=== PATIENT | female | born 1955 | race Caucasian/White ===

== ENCOUNTER → 2017-06-04 08:40 | Outpatient (CLI) | payer OTHER, SELFPAY ==
[2017-06-04 10:37] LABS: Anion Gap 6 (5-15); BUN 17 mg/dL (7-18); BUN/Creat Ratio 27.7 RATIO (10-20); Calcium,Total 9.1 mg/dL (8.5-10.1); Chloride 104 mmol/L (98-107); Cholesterol 199 mg/dL (200); Creatinine, Serum 0.61 mg/dL (0.55-1.02); EST Glomerular Filtration Rate 106 mL/min (>60); Est Glom Filt Rate - Afr Amer 128 mL/min (>60); Glucose 83 mg/dL (74-106); High Density Lipoprotein 46 mg/dL; Potassium 3.6 mmol/L (3.5-5.1); Sodium Level 141 mmol/L (136-145); Thyroid Stim Hormone (TSH) 0.52 uIU/mL (0.358-3.74); Triglycerides 192 mg/dL; Very Low Density Lipoprotein 38 mg/dL (5-40)
== END ==
PROVIDERS: Family Provider Family Medicine; PCP Family Medicine; Visit Provider Family Medicine
DX: E78.5 Hyperlipidemia, unspecified (principal); E03.9 Hypothyroidism, unspecified
CPT/HCPCS: 36415; 80048; 80061; 84443

== ENCOUNTER → 2017-07-14 14:29 | Outpatient (CLI) | payer OTHER, SELFPAY ==
--- NOTE | 2017-07-14 14:30 | BD_ITS ---
STUDY: DUAL ENERGY X-RAY ABSORPTIOMETRY / DXA REASON FOR EXAM: Female, 62 years old. The patient is postmenopausal. Loss of height. TECHNIQUE: Bone Mineral Density (BMD) measurements of lumbar spine and bilateral hips were obtained. COMPARISON: None. FINDINGS: Lumbar Spine (L1-L4): g/cm2 (1.088) / T-score (-0.8) / Z-score (0.4) Findings are suggestive of normal bone density with a low fracture risk. Left Femur Total: g/cm2 (1.017) / T-score (0.1) / Z-score (1.0) Left Femoral Neck: g/cm2 (1.026) / T-score (-0.1) / Z-score (1.2) Right Femur Total: g/cm2 (1.042) / T-score (0.3) / Z-score (1.2) Right Femoral Neck: g/cm2 (0.985) / T-score (-0.4) / Z-score (0.9) BD/Dexa Bone Density Study IMPRESSION: The patient is considered normal as outlined below according to World Brandan Organization (WHO) criteria with a low fracture risk. Reference Information: The T-score is the number of standard deviations above or below the standard which is normal for young adults at their peak bone mineral density. The World Health Organization (WHO) interprets the T-scores as follows: Above -1 Normal bone density Between -1 and -2.5 Osteopenia Equal to / or below -2.5 Osteoporosis As a practical clinical guideline, osteopenia may be graded as follows: Mild -1 through -1.5 Moderate -1.6 through -2.0 Severe -2.1 through -2.4 The Z-score is the number of standard deviations above or below age-matched controls. A Z-score of less than -1.5 would be considered abnormal. References: 1. NIH Osteoporosis and Related Bone Diseases http://www.osteo.org 2. International Society for Clinical Densitometry http://www.iscd.org 3. National Osteoporosis Foundation http://www.nof.org Electronically Signed: Edward Gonsales MD at 15:45 EDT Tel [phone], Service support ,
--- NOTE | 2017-07-14 14:31 | BI_ITS ---
MAMMOGRAPHY - BILATERAL SCREENING REASON FOR EXAM: Female, 62 years old. Routine annual screening examination. PERTINENT HISTORY: Non-contributory. TECHNIQUE: Digital bilateral breast john (3D mammographic acquisition) in the CC and MLO projections. 2-D mediolateral oblique (MLO) and craniocaudad (CC) views of both breasts were obtained. CAD: Full Field Digital Mammography with Computer Added Detection was performed. COMPARISON: Comparison is made with prior study dated January 22, 2016 and June 21, 2014. FINDINGS: Breast Composition: The breasts are heterogeneously dense, which may obscure small masses. There are no dominant masses or suspicious calcifications. Stable asymmetry of breast tissue were more breast tissue is seen in the upper outer quadrant of the right breast as compared to the left side. No other significant abnormalities are identified. There has been no significant change since the prior study. BI/SCREENING MAMM (CAD), BILAT IMPRESSION: Stable bilateral screening mammogram. Yearly follow-up mammogram recommended. (A) ASSESSMENT CATEGORY: BIRADS Category 2: Benign. A letter regarding these results will be sent to the patient by the facility within 30 days. Approximately 10% of breast cancers are not detected by mammography. A normal mammogram should not delay biopsy of a clinically suspicious abnormality. [id number] Electronically Signed: Edward Gonsales MD at 8:45 EDT Tel [phone], Service support ,
== END ==
PROVIDERS: Family Provider Family Medicine; PCP Family Medicine; Visit Provider Family Medicine
DX: Z12.31 Encounter for screening mammogram for malignant neoplasm of breast (principal); Z13.228 Encounter for screening for other metabolic disorders
CPT/HCPCS: 77063; 77067; 77080

== ENCOUNTER → 2017-08-31 15:54 | Outpatient (CLI) | payer OTHER, SELFPAY | PROVIDERS: Family Provider Family Medicine; PCP Family Medicine; Visit Provider Otolaryngology Otolaryngology/Facial Plastic Surgery | DX: J32.9 Chronic sinusitis, unspecified (principal) | CPT/HCPCS: 87070; 87205 ==

== ENCOUNTER → 2018-06-08 08:54 | Outpatient (CLI) | payer OTHER, SELFPAY ==
[2018-06-08 11:15] LABS: Thyroid Stim Hormone (TSH) 0.61 uIU/mL (0.358-3.74)
== END ==
PROVIDERS: Family Provider Family Medicine; PCP Family Medicine; Referring Provider Family Medicine; Visit Provider Family Medicine
DX: E03.9 Hypothyroidism, unspecified (principal)
CPT/HCPCS: 36415; 84443

== ENCOUNTER → 2019-01-12 | Outpatient (CLI) | payer OTHER, SELFPAY ==
--- NOTE | 2019-01-12 16:16 | BI_ITS ---
MAMMOGRAPHY - BILATERAL SCREENING REASON FOR EXAM: Female, 63 years old. Routine annual screening examination. PERTINENT HISTORY: Non-contributory. TECHNIQUE: Digital bilateral breast phuc (3D mammographic acquisition) in the CC and MLO projections. 2-D mediolateral oblique (MLO) and craniocaudad (CC) views of both breasts were obtained. CAD: Full Field Digital Mammography with Computer Added Detection was performed. COMPARISON: Comparison is made with prior study dated July 14, 2017 and January 22, 2016. FINDINGS: Breast Composition: The breasts are heterogeneously dense, which may obscure small masses. There are no dominant masses or suspicious calcifications. Stable asymmetry of breast tissue or more breast tissue is seen in the upper outer quadrant of the right breast as compared to the left side. Stable appearance of the benign-appearing bilateral axillary lymph nodes. No other significant abnormalities are identified. There has been no significant change since the prior study. BI/SCREEN MAMM (CAD) W/PHUC BILAT IMPRESSION: Stable bilateral screening mammogram. Yearly follow-up mammogram recommended. (A) ASSESSMENT CATEGORY: BIRADS Category 2: Benign. A letter regarding these results will be sent to the patient by the facility within 30 days. Approximately 10% of breast cancers are not detected by mammography. A normal mammogram should not delay biopsy of a clinically suspicious abnormality. [id number] Electronically Signed: Edward Gonsales, at 8:57 EDT , Service support ,
== END | disposition home or self-care (01) ==
LOC: OPBI 16:15
PROVIDERS: Family Provider Family Medicine; PCP Family Medicine; Referring Provider Family Medicine; Visit Provider Family Medicine
DX: Z12.31 Encounter for screening mammogram for malignant neoplasm of breast (principal)
CPT/HCPCS: 77063; 77067

== ENCOUNTER → 2019-04-26 09:37 | Outpatient (CLI) | payer OTHER, SELFPAY ==
[2019-04-26 12:18] LABS: Absolute Lymphocyte Count 1.39 X10^3/uL (0.83-4.51); Basophil# 0.04 X10^3/uL; Eosinophil# 0.12 X10^3/uL; Hematocrit 41.4 % (37-47); Hemoglobin 13.1 g/dL (12.0-15.0); Lymphocyte # 1.39 X10^3/ul (4.0); Lymphocyte % 34.9 % (19-41); Mean Corp Hgb Conc 31.6 g/dL (32-36); Mean Corpuscular Hgb 29.8 pg (27.0-32.0); Mean Corpuscular Volume 94.1 fL (81-99); Mean Platelet Vol. 10.3 fl (6.2-12.0); Monocyte# 0.38 X10^3/uL; Monocyte% 9.5 % (0-10); NRBC Flagged by Analyzer 0 % (0-5); Neutrophil # 2.04 X10^3/uL (2.7-7.7); Neutrophil % 51.3 % (47-70); Platelet Count 267 K/mm3 (150-450); RBC Distribution Width CV 12.7 % (11.6-14.6); RBC Distribution Width SD 44.1 fl (35.1-43.9)
[2019-04-26 13:09] LABS: Anion Gap 5 (5-15); BUN 17 mg/dL (7-18); BUN/Creat Ratio 22.9 RATIO (10-20); Calcium,Total 9.6 mg/dL (8.5-10.1); Chloride 106 mmol/L (98-107); Cholesterol 180 mg/dL (200); Creatinine, Serum 0.74 mg/dL (0.55-1.02); EST Glomerular Filtration Rate 84 mL/min (>60); Est Glom Filt Rate - Afr Amer 102 mL/min (>60); Glucose 89 mg/dL (74-106); High Density Lipoprotein 39 mg/dL; Potassium 3.6 mmol/L (3.5-5.1); Sodium Level 141 mmol/L (136-145); Thyroid Stim Hormone (TSH) 0.45 uIU/mL (0.358-3.74); Triglycerides 243 mg/dL; Very Low Density Lipoprotein 49 mg/dL (5-40)
== END ==
PROVIDERS: Family Provider Family Medicine; PCP Family Medicine; Referring Provider Family Medicine; Visit Provider Family Medicine
DX: I10 Essential (primary) hypertension (principal); E78.5 Hyperlipidemia, unspecified; E03.9 Hypothyroidism, unspecified; Z01.818 Encounter for other preprocedural examination
CPT/HCPCS: 36415; 80048; 80061; 84443; 85025

== ENCOUNTER 2019-07-07 09:00 | Outpatient (RCR) | payer OTHER, SELFPAY ==
--- NOTE | 2019-05-30 10:12 | HP.PTEVAL ---
Patient's Visit Information THOR STRONG is a 64 year old F referred to Physical Therapy by Osbaldo Sands PA-C with a diagnosis of L TKA. Date of Evaluation: 05/27/19 Physical Therapist: Lefty Simpson DPT - Visit Plan Frequency: 2-3x /Week Duration: 4-6 Weeks Plan: Start with ROM of L knee priogressing end ranges as able. Progress active strengthening as tolerated. May use ice for pain control. - Subjective Findings: Pt. is here today for her initial evaluation with diagnosis of L TKA. Pt. had surgery on 05/24/19. Pt. arrives today using FWW. Pt. is having some ryan with her WEN hoes, and thigh soreness, but no calf pain, no dizziness, no difficulty breathing. Pt. still has bandage on and is to take off next week. Pt. reports doing her exercises at home, some difficulty with SLR and knee flexion exercises. Pt. has been icing as instructed. She is taking medication as prescribed. She is eager to get moving and back to work. She works at [employer]. She is hopeful to get back to all recreational and work activities without limitations. Pt. is avid attender of aquatic aerobics and would like to get back to this JAYME. - Pain L knee Pain Intensity (Out of 10): 5 Pain Intensity Range: 3, 7 - Objective POSTURE: Pt. is over wt. Pt. stands with walker, lacks TKE on LLE. Pt. have increased wt. shift to R side. PALPATION: Pt. has no redness, but does have increased heat. pt. has incision which is covered with bandage, to be removed next week. NEURO: normal sensation, normal achilles DTR. ROM: L Knee 0-10-84deg (pain at end ranges.) PT. has tight HS bilaterally., normal hip ROM. MMT: RLE- 5/5 throughout, except hip abd/ext/flexion 4+/5. LLE- ankle 5/5 throughout; knee- 4/5 throughout; hip- flexion 3/5, abd 3/5, ext 3/5. GAIT: Pt. ambulates with FWW, small step length on R side. Pt. lacks TKE during stance phase of gait. I adjusted hieght to better fit patient. STAIRS: 2 HR with step to pattern. - Goals Goal 1:: LTG: Pt. to be I with HEP. Goal Time Frame: 4-6 Weeks Goal 2:: STG: Pt. to have increased L knee ROM to 0-0-120deg without incerase in symptoms. Goal Time Frame: 2-4 Weeks Goal 3:: LTG: Pt. to ambulate without AD without limitations. Goal Time Frame: 4-6 Weeks Goal 4:: LTG: Pt. to negotiate steps with reciprocal patten withotu incerase in symptoms with 1 HR. Goal Time Frame: 4-6 Weeks Goal 5:: LTG: Pt. to have increased LLE strength by 1/2 grade of all effected musculature. Goal Time Frame: 4-6 Weeks Goal 6:: STG: pt. to sleep throughout the night without issues. Goal Time Frame: 2-4 Weeks - Rehabilitation Potential Physical Therapy Diagnosis: Pt. has signs and symptoms consistent with L TKA with subsequent hypombility, increased pain, weakness and difficulty with walking. Pt. would benefit from PT to address above limitations progressing back to all ADLs and work without issues. Rehabilitation Potential: Excellent - Anticipated Interventions Patient/Client Instruction: Educate patient on: Condition, Plan of Care, Risk Factors, Benefits of Fitness Program For the Purpose of:: To foster healthy habits, To improve decision making, To facilitate caregiver knowledge, To improve self management, To prevent re-injury, To improve ability to perform tasks related to life management, To improve tolerance to ADL's Therapeutic Exercise to Include: Strength training, Power training, Body mechanics, Postural training, Flexibilty training, Gait and locomotor training, Passive ROM, Active ROM For the Purpose of:: To decrease pain, To decrease swelling/inflammation, To increase ROM, To improve nutrient delivery to tissue, To increase oxygenation perfusion, To improve muscle performance and motor function, To improve gait and locomotor functions, To improve health of tissue, To decrease soft tissue restriction, To increase flexibility/ROM Cryotherapy (ice pack, ice massage): Yes For the Purpose of:: To decrease pain, To decrease swelling/inflammation, To increase ROM, To improve nutrient delivery to tissue, To increase flexibility/ROM Thank you for the opportunity to evaluate your patient. For Medicare and Medicare HMO plans, please review the plan of care and approve it. It will need to be FAXED BACK to us at [phone] for Medicare purposes. For Medicare only, by signing this I certify the plan of care. Please let me know if there are questions or concerns regarding this plan of care. Physician Signature: Date:
--- NOTE | 2019-06-06 14:54 | HP.PTREVAL_ITS ---
Osbaldo Sands PA-C, It has been my pleasure to treat THOR STRONG over the last 5 visits for L TKA. Please see the progress note below for an update on the physical therapy plan of care! Subjective: Pt. reports having her amna removed earlier this date. Physican was pleased with ROm and progress. Pt. arrives today with use of SPC. No issues. Pt. reports no pain pre treatment. Objective/Function: R KNEE ROM (non operative) 0-0- 133deg NO pain with ROM testing. MMT: 4+/5 throughout knee and hip musculature. Stairs: are painfull with laoding RLE and LLE this date. Pain to pivot in RLE. Pt. has incraesed valgus deformity as well. L KNEE ROM 0-0-105 deg PROM, AROM 0-0-101deg. Pt. is doing better with her L knee, ROM is improving. Pt. has no signs of infection. Plan Plan: Start with ROM of L knee progressing end ranges as able. Progress active strengthening as tolerated. May use ice for pain control. I will also attempt to strength her RLE in hopes to increase stability and reduce stress to R knee. Goals Goal 1:: LTG: Pt. to be I with HEP. Goal Time Frame: 4-6 Weeks Goal 2:: STG: Pt. to have increased L knee ROM to 0-0-120deg without incerase in symptoms. Goal Time Frame: 2-4 Weeks Goal 3:: LTG: Pt. to ambulate without AD without limitations. Goal Time Frame: 4-6 Weeks Goal 4:: LTG: Pt. to negotiate steps with reciprocal patten withotu incerase in symptoms with 1 HR. Goal Time Frame: 4-6 Weeks Goal 5:: LTG: Pt. to have increased LLE strength by 1/2 grade of all effected musculature. Goal Time Frame: 4-6 Weeks Goal 6:: STG: pt. to sleep throughout the night without issues. Goal Time Frame: 2-4 Weeks Anticipated Interventions Patient/Client Instruction: Educate patient on: Condition, Plan of Care, Risk Factors, Benefits of Fitness Program For the Purpose of:: To foster healthy habits, To improve decision making, To facilitate caregiver knowledge, To improve self management, To prevent re- injury, To improve ability to perform tasks related to life management, To improve tolerance to ADL's Therapeutic Exercise to Include: Strength training, Power training, Body mechanics, Postural training, Flexibilty training, Gait and locomotor training, Passive ROM, Active ROM For the Purpose of:: To decrease pain, To decrease swelling/inflammation, To increase ROM, To improve nutrient delivery to tissue, To increase oxygenation perfusion, To improve muscle performance and motor function, To improve gait and locomotor functions, To improve health of tissue, To decrease soft tissue restriction, To increase flexibility/ROM Cryotherapy (ice pack, ice massage): Yes For the Purpose of:: To decrease pain, To decrease swelling/inflammation, To increase ROM, To improve nutrient delivery to tissue, To increase flexibility/ROM Please do not hesitate to contact me at [phone] by phone or if you have questions or concerns regarding this new plan of care! Sincerely, Lefty Simpson DPT
--- NOTE | 2019-06-17 13:56 | HP.PTREVAL_ITS ---
Osbaldo Sands PA-C, It has been my pleasure to treat THOR STRONG over the last 10 visits for L TKA. Please see the progress note below for an update on the physical therapy plan of care! Subjective: Pt reports that she is achy today. Objective/Function: Pt did well with exercises today. Stairs: hard to ascend and descend stairs today with a railing. Gait: walks with decreased heel strike on the L and decreased stance time on the R. Plan Plan: Start with ROM of L knee progressing end ranges as able. Progress active strengthening as tolerated. May use ice for pain control. I will also attempt to strength her RLE in hopes to increase stability and reduce stress to R knee. Goals Goal 1:: LTG: Pt. to be I with HEP. Goal Time Frame: 4-6 Weeks Goal 2:: STG: Pt. to have increased L knee ROM to 0-0-120deg without incerase in symptoms. Goal Time Frame: 2-4 Weeks Goal Progress: Progressing Goal 3:: LTG: Pt. to ambulate without AD without limitations. Goal Time Frame: 4-6 Weeks Goal Progress: Progressing Goal 4:: LTG: Pt. to negotiate steps with reciprocal patten withotu incerase in symptoms with 1 HR. Goal Time Frame: 4-6 Weeks Goal Progress: Progressing Goal 5:: LTG: Pt. to have increased LLE strength by 1/2 grade of all effected musculature. Goal Time Frame: 4-6 Weeks Goal 6:: STG: pt. to sleep throughout the night without issues. Goal Time Frame: 2-4 Weeks Anticipated Interventions Patient/Client Instruction: Educate patient on: Condition, Plan of Care, Risk Factors, Benefits of Fitness Program For the Purpose of:: To foster healthy habits, To improve decision making, To facilitate caregiver knowledge, To improve self management, To prevent re- injury, To improve ability to perform tasks related to life management, To improve tolerance to ADL's Therapeutic Exercise to Include: Strength training, Power training, Body mechanics, Postural training, Flexibilty training, Gait and locomotor training, Passive ROM, Active ROM For the Purpose of:: To decrease pain, To decrease swelling/inflammation, To increase ROM, To improve nutrient delivery to tissue, To increase oxygenation perfusion, To improve muscle performance and motor function, To improve gait and locomotor functions, To improve health of tissue, To decrease soft tissue restriction, To increase flexibility/ROM Cryotherapy (ice pack, ice massage): Yes For the Purpose of:: To decrease pain, To decrease swelling/inflammation, To increase ROM, To improve nutrient delivery to tissue, To increase flexibility/ROM Please do not hesitate to contact me at [phone] by phone or if you have questions or concerns regarding this new plan of care! Sincerely, Dalia Celeste, MPT
--- NOTE | 2019-11-21 16:23 | HP.PTDCSUM ---
It has been my pleasure to treat THOR STRONG referred by Osbaldo Sands PA-C, with the diagnosis of L TKA for a total of 16 visit(s). Discharge Date: 07/07/19 Please see the following information for a summary of their discharge status. Subjective: Pt. reports I am 95% better. Pt. reports no new issues. Pt. is pleased with her progress. HEP compliant. L knee Pain Intensity (Out of 10): 0 % Improvement: 95 Objective/Function: ROM- 0-0-120deg. MMT; 5/5 throughout. Pt. is ambulating without issues without AD. STAIRS: Pt is able to negotiateion without Issues with 1 HR with reciprocal pattern. She is independent with her HEP both on land and water. Pt. is pleased with her ability to get around. She has minimal to no pain. Pt. will be DC to HEP at this point in time. Goal 1:: LTG: Pt. to be I with HEP. Goal Progress: Goal Met Goal 2:: STG: Pt. to have increased L knee ROM to 0-0-120deg without incerase in symptoms. Goal Progress: Goal Met Goal 3:: LTG: Pt. to ambulate without AD without limitations. Goal Progress: Goal Met Goal 4:: LTG: Pt. to negotiate steps with reciprocal patten withotu incerase in symptoms with 1 HR. Goal Progress: Goal Met Goal 5:: LTG: Pt. to have increased LLE strength by 1/2 grade of all effected musculature. Goal Progress: Goal Met Goal 6:: STG: pt. to sleep throughout the night without issues. Plan: DC to HEP. Discharge Comments: Pt. did well with PT with focus on ROM and strengthening. She has minimal pain and is back to most activities wtihout limitaitons. Pt. is I with HEP and will be DC from PT at this point in time. If there are questions or concerns regarding this patient's physical therapy, please feel free to call me at [phone]. Thank you for the referral of this patient. Sincerely, Lefty Simpson DPT
== END 2019-07-07 19:00 | disposition home or self-care (01) ==
LOC: PT 09:00
PROVIDERS: PCP Family Medicine; Referring Provider Physician Assistant Surgical; Visit Provider Physician Assistant Surgical
DX: M17.0 Bilateral primary osteoarthritis of knee (principal); Z96.652 Presence of left artificial knee joint; Z47.1 Aftercare following joint replacement surgery
CPT/HCPCS: 97110; 97161; 97164

== ENCOUNTER → 2019-08-31 13:57 | Outpatient (CLI) | payer OTHER, SELFPAY ==
--- NOTE | 2019-08-31 14:00 | BI_ITS ---
MAMMOGRAPHY - BILATERAL DIAGNOSTIC REASON FOR EXAM: Female, 64 years old. BILAT DX FOR RT LUMPS PERTINENT HISTORY: - RT ASPIRATION IN THE PAST - RT LATERAL AXILLARY LUMP X 4 MONTHS - RT LUMP DEEP MIDSTERNAL REGION X 8WKS - LT MOLE TECHNIQUE: Digital bilateral breast john (3D mammographic acquisition) in the CC and MLO projections. 2-D mediolateral oblique (MLO) and craniocaudad (CC) views of both breasts were obtained. CAD: Full Field Digital Mammography with Computer Added Detection was performed. COMPARISON: None. FINDINGS: Breast Composition: The breasts are heterogeneously dense, which may obscure small masses. There are no dominant masses or suspicious calcifications. There is no mammographic abnormality to correlate with the lumps noted on clinical examination. Ultrasound is performed in the same day. No other significant abnormalities are identified. BI/DIAG MAMM W/CAD, BILAT IMPRESSION: Further ultrasonographic evaluation recommended, as described above. (I) ASSESSMENT CATEGORY: BIRADS Category 0: Incomplete. Need additional imaging evaluation. A letter regarding these results will be sent to the patient by the facility within 30 days. Approximately 10% of breast cancers are not detected by mammography. A normal mammogram should not delay biopsy of a clinically suspicious abnormality. Electronically Signed: Toño Sahu, at 11:25 EDT Tel , Service support ,
--- NOTE | 2019-08-31 14:49 | US_ITS ---
STUDY: ULTRASOUND BREAST - RIGHT REASON FOR EXAM: Female, 64 years old. RT PALPABLE LUMP X 2 TECHNIQUE: Axial and longitudinal images of the RIGHT breast were performed with a high resolution ultrasound transducer. # OF IMAGES: 26 COMPARISON: None. FINDINGS: RIGHT Breast: There is a lesion #1 in the medial aspect of the right breast near the midline consistent with lipoma, measures 1.8 x 2.4 x 0.9 cm in size. Posterior Enhancement: No. Posterior Shadowing: None. Margins: Sharp and smooth. Echogenicity: Hyperechoic. Compression effect on Shape: Shape distortion. There is a lesion # 2 in the axillary tail consistent with lipoma, measures 1.2 x 2.5 x 1 cm in size. Posterior Enhancement: No. Posterior Shadowing: None. Margins: Sharp and smooth. Echogenicity: Hyperechoic. Compression effect on Shape: Shape distortion. There is a lymph node in the right axilla, measures 1.9 x 1.2 x 0.8 cm in size. Posterior Enhancement: No. Posterior Shadowing: None. Margins: Sharp and smooth. Echogenicity: Hypoechoic was hyperechoic center. Compression effect on Shape: No change. US/Breast Limited Unilateral IMPRESSION: Probably benign lipomas at the medial and lateral aspect of the right breast as described above. ASSESSMENT CATEGORY: BIRADS Category 3: Probably Benign - Short-Interval Follow-up Suggested. A letter regarding these results will be sent to the patient by the facility within 30 days. Electronically Signed: Toño Sahu, at 14:55 EDT Tel , Service support ,
== END ==
PROVIDERS: PCP Family Medicine; Visit Provider Family Medicine
DX: N63.0 Unspecified lump in unspecified breast (principal)
CPT/HCPCS: 76642; 77062; 77066; G0279

== ENCOUNTER 2020-01-02 15:30 | Outpatient (RCR) | payer OTHER, SELFPAY ==
--- NOTE | 2019-10-31 11:25 | HP.PTEVAL ---
Patient's Visit Information THOR STRONG is a 64 year old F referred to Physical Therapy by Osbaldo Sands PA-C with a diagnosis of R TKA. Date of Evaluation: 10/28/19 Physical Therapist: Lefty Simpson DPT - Visit Plan Frequency: 2-3x /Week Duration: 4-6 Weeks Plan: Start with ROM, progressing as tolerated. Add in isometric strengthening progrssing to functional strengthening as able. May use ice/vaso for edema control. - Subjective Pt. is here today for her initial evaluation with diagnosis of R TKA. Pt. reports she is doing well. Pt. reports 2/10 pain currently. DOS: 10/26/19. Pt. reports no N/T, no calf pain, no fever chills. 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 Pt. was at work without issues. Pt. arrives today with FWW and has been doing her exercises without issues. Pt. reports being HEP compliant. Pt. is hopeful to get back to her aquatic exercises without limitations. - Pain R knee Pain Intensity (Out of 10): 2 Pain Intensity Range: 1, 6 - Objective POSTURE: Pt. has slight R knee flexion during stance. P. uses FWW to stabilize. Decreased R wt. shifting noted as well. PALPATION: Negative conner's sign. Pt. has tenderness along knee, no sings of infection noted. NEURO: normal sensation, Pt. is able to raise on heels and toes. ROM: R knee 0-3-90deg. Pt. has tenderness at both end ranges of motions, but tolerable. L knee 0-0-123deg. Pt. has tight HS as well. MMT: Pt. has general 3+/5 RLE strength. Pt. is able to complete SLR as well with good quad contraction. GAIT: Pt. ambulates with FWW with sligth R knee flexion, minimal knee flexion during swing phase. STAIRS: DNT this date. - Goals Goal 1:: LTG: Pt. to be I with HEP. Goal Time Frame: 4-6 Weeks Goal 2:: STG: PT. to have 0-0-120deg of R knee ROM. Goal Time Frame: 2-4 Weeks Goal 3:: LTG: Pt. to have increased RLE strength increased by 1/2 grade of all effected musculature. Goal Time Frame: 4-6 Weeks Goal 4:: LTG: Pt. to ambulate unlimited distances with out AD with normal gait pattern. Goal Time Frame: 4-6 Weeks Goal 5:: LTG: Pt. to negotiate 1 flight of steps with 1 HR with recirpocal pattern. Goal Time Frame: 4-6 Weeks - Rehabilitation Potential Physical Therapy Diagnosis: Pt. has signs and symptoms consistent wtih R TKA DOS: 10/26/19. Pt. has subsequent hypombility, weakness, increased pain/edema, decreased functional mobility and decreased ability to negotiate steps. Pt. would benefit from PT to address above limitations progressing back to all recreational activities as previosuly. Rehabilitation Potential: Excellent - Anticipated Interventions Patient/Client Instruction: Educate patient on: Condition, Plan of Care, Risk Factors, Benefits of Fitness Program For the Purpose of:: To facilitate caregiver knowledge, To improve self management, To prevent re-injury, To improve ability to perform tasks related to life management, To improve tolerance to ADL's Therapeutic Exercise to Include: Strength training, Power training, Balance training, Coordination, Postural training, Flexibilty training, Gait and locomotor training, Passive ROM, Active ROM For the Purpose of:: To decrease pain, To decrease swelling/inflammation, To increase ROM, To improve nutrient delivery to tissue, To increase oxygenation perfusion, To improve muscle performance and motor function, To improve ability to perform ADL's, To improve gait and locomotor functions, To improve health of tissue, To decrease soft tissue restriction, To increase flexibility/ROM, To improve endurance, To improve balance, To assume or resume ADL's Cryotherapy (ice pack, ice massage): Yes Vasopneumatic device: Yes For the Purpose of:: To decrease pain, To decrease swelling/inflammation, To increase ROM, To improve nutrient delivery to tissue, To increase oxygenation perfusion, To improve muscle performance and motor function Thank you for the opportunity to evaluate your patient. For Medicare and Medicare HMO plans, please review the plan of care and approve it. It will need to be FAXED BACK to us at [phone] for Medicare purposes. For Medicare only, by signing this I certify the plan of care. Please let me know if there are questions or concerns regarding this plan of care. Physician Signature: Date:
--- NOTE | 2019-11-25 13:37 | HP.PTREVAL ---
Osbaldo Sands PA-C, It has been my pleasure to treat THOR STRONG over the last 13 visits for R TKA. Please see the progress note below for an update on the physical therapy plan of care! Subjective: Pt. reports being 70% better overall. Pt. reports having some tight tightness and soreness at times, but is overall doing well. Pt. arrives without walking device today. Pt. reports having 2/10 pain in her R knee today. HEP compliant. Objective/Function: ROM: 0-0-107deg. MMT: 4+/5 throughout; except hip abd 4/5, adn knee extension 4/5. GAIT: Pt. is able to ambulate without AD. Pt. is ambulating without AD with minimal increase in symptoms. Pt. has good TKE during stance phase, improving knee flexion during swing phase. Pt. does have slight antalgic pattern I am just getting used to it. STAIRS: reciprocal pattern with 2 HR, increased soreness with descending. Plan Plan: Pt. is doing well overall. I extended her POC x2-3 per week for 3 weeks. Goals Goal 1:: LTG: Pt. to be I with HEP. Goal Time Frame: 4-6 Weeks Goal Progress: Progressing Goal 2:: STG: PT. to have 0-0-120deg of R knee ROM. Goal Time Frame: 2-4 Weeks Goal Progress: Progressing Goal 3:: LTG: Pt. to have increased RLE strength increased by 1/2 grade of all effected musculature. Goal Time Frame: 4-6 Weeks Goal Progress: Progressing Goal 4:: LTG: Pt. to ambulate unlimited distances with out AD with normal gait pattern. Goal Time Frame: 4-6 Weeks Goal Progress: Progressing Goal 5:: LTG: Pt. to negotiate 1 flight of steps with 1 HR with recirpocal pattern. Goal Time Frame: 4-6 Weeks Goal Progress: Progressing Anticipated Interventions Patient/Client Instruction: Educate patient on: Condition, Plan of Care, Risk Factors, Benefits of Fitness Program For the Purpose of:: To facilitate caregiver knowledge, To improve self management, To prevent re-injury, To improve ability to perform tasks related to life management, To improve tolerance to ADL's Therapeutic Exercise to Include: Strength training, Power training, Balance training, Coordination, Postural training, Flexibilty training, Gait and locomotor training, Passive ROM, Active ROM For the Purpose of:: To decrease pain, To decrease swelling/inflammation, To increase ROM, To improve nutrient delivery to tissue, To increase oxygenation perfusion, To improve muscle performance and motor function, To improve ability to perform ADL's, To improve gait and locomotor functions, To improve health of tissue, To decrease soft tissue restriction, To increase flexibility/ROM, To improve endurance, To improve balance, To assume or resume ADL's Cryotherapy (ice pack, ice massage): Yes Vasopneumatic device: Yes For the Purpose of:: To decrease pain, To decrease swelling/inflammation, To increase ROM, To improve nutrient delivery to tissue, To increase oxygenation perfusion, To improve muscle performance and motor function Please do not hesitate to contact me at [phone] by phone or if you have questions or concerns regarding this new plan of care! Sincerely, Lefty Simpson DPT
--- NOTE | 2019-12-06 08:56 | HP.PTREVAL ---
Osbaldo Sands PA-C, It has been my pleasure to treat THOR STRONG over the last 17 visits for R TKA. Please see the progress note below for an update on the physical therapy plan of care! Subjective: Pt. reports I just feel tight.' PT. reports being HEP compliant. She was in meetings most of the day yesterday. Objective/Function: ROM: PROM- 0-0-116deg. AROM: 0-0-114deg. Pt. has pain with end range flexion, tight end feel, but no firm end feel. MMT: 4+/5 throughout RLE, no pain with testing. GAIT: Pt. ambulates without AD with good pattern. Slight antalgic pattern during R stance phase initially, but progresses as she walks more. STAIRS: Pt. is ascending steps with reciprocal pattern. Pt. is able to descend with 2 HR wtih reciprocal pattern, but does have increased soreness with RLE loading. Plan Plan: Cont. with POC. Pt. is doing well. She stil has some swelling as she has been back to most daily activities. Pt. will continue with Goals Goal 1:: LTG: Pt. to be I with HEP. Goal Time Frame: 4-6 Weeks Goal Progress: Progressing Goal 2:: STG: PT. to have 0-0-120deg of R knee ROM. Goal Time Frame: 2-4 Weeks Goal Progress: Progressing Goal 3:: LTG: Pt. to have increased RLE strength increased by 1/2 grade of all effected musculature. Goal Time Frame: 4-6 Weeks Goal Progress: Goal Met Goal 4:: LTG: Pt. to ambulate unlimited distances with out AD with normal gait pattern. Goal Time Frame: 4-6 Weeks Goal Progress: Goal Met Goal 5:: LTG: Pt. to negotiate 1 flight of steps with 1 HR with recirpocal pattern. Goal Time Frame: 4-6 Weeks Goal Progress: Progressing Anticipated Interventions Patient/Client Instruction: Educate patient on: Condition, Plan of Care, Risk Factors, Benefits of Fitness Program For the Purpose of:: To facilitate caregiver knowledge, To improve self management, To prevent re-injury, To improve ability to perform tasks related to life management, To improve tolerance to ADL's Therapeutic Exercise to Include: Strength training, Power training, Balance training, Coordination, Postural training, Flexibilty training, Gait and locomotor training, Passive ROM, Active ROM For the Purpose of:: To decrease pain, To decrease swelling/inflammation, To increase ROM, To improve nutrient delivery to tissue, To increase oxygenation perfusion, To improve muscle performance and motor function, To improve ability to perform ADL's, To improve gait and locomotor functions, To improve health of tissue, To decrease soft tissue restriction, To increase flexibility/ROM, To improve endurance, To improve balance, To assume or resume ADL's Cryotherapy (ice pack, ice massage): Yes Vasopneumatic device: Yes For the Purpose of:: To decrease pain, To decrease swelling/inflammation, To increase ROM, To improve nutrient delivery to tissue, To increase oxygenation perfusion, To improve muscle performance and motor function Please do not hesitate to contact me at [phone] by phone or if you have questions or concerns regarding this new plan of care! Sincerely, FLO BartlettT
--- NOTE | 2020-01-12 07:24 | HP.PTDCNRP_ITS ---
THOR STRONG was seen in my office for initial evaluation on 10/28/19. The following Plan of Care was established for this patient: Initial Frequency: 2-3x /Week Initial Duration: 4-6 Weeks Patient/Client Instruction: Educate patient on: Condition, Plan of Care, Risk Factors, Benefits of Fitness Program For the Purpose of:: To facilitate caregiver knowledge, To improve self management, To prevent re-injury, To improve ability to perform tasks related to life management, To improve tolerance to ADL's Therapeutic Exercise to Include: Strength training, Power training, Balance training, Coordination, Postural training, Flexibilty training, Gait and lo comotor training, Passive ROM, Active ROM For the Purpose of:: To decrease pain, To decrease swelling/inflammation, To increase ROM, To improve nutrient delivery to tissue, To increase oxygenation perfusion, To improve muscle performance and motor function, To improve ability to perform ADL's, To improve gait and locomotor functions, To improve health of tissue, To decrease soft tissue restriction, To increase flexibility/ROM, To improve endurance, To improve balance, To assume or resume ADL's Cryotherapy (ice pack, ice massage): Yes Vasopneumatic device: Yes For the Purpose of:: To decrease pain, To decrease swelling/inflammation, To increase ROM, To improve nutrient delivery to tissue, To increase oxygenation perfusion, To improve muscle performance and motor function This patient was last seen in our office 01/02/20. Pertinent comments regarding their Physical therapy will appear below: Pt. was treated for her TKA. Pt. is doing well. She is still having some mild swelling, but I talked with her about how this can last upto 6 months at times. Pt. is walking well, some mild soreness with descending steps. Pt. will be DC from Pt at this point in time. At this point I will be discontinuing this patient from physical therapy. I would be happy to see this patient again in the future if found appropriate by the physician. Thank you! FLO BartlettT
== END 2020-01-02 19:00 | disposition home or self-care (01) ==
LOC: PT 15:30
PROVIDERS: PCP Family Medicine; Referring Provider Physician Assistant Surgical; Visit Provider Physician Assistant Surgical
DX: M17.11 Unilateral primary osteoarthritis, right knee (principal)
CPT/HCPCS: 97110; 97113; 97140; 97161; 97164

== ENCOUNTER → 2020-01-25 08:42 | Outpatient (CLI) | payer OTHER, SELFPAY ==
[2020-01-25 10:46] LABS: Anion Gap 5 (5-15); BUN 18 mg/dL (7-18); BUN/Creat Ratio 23.2 RATIO (10-20); Calcium,Total 9.4 mg/dL (8.5-10.1); Chloride 103 mmol/L (98-107); Cholesterol 192 mg/dL (200); Creatinine, Serum 0.78 mg/dL (0.55-1.02); EST Glomerular Filtration Rate 80 mL/min (>60); Est Glom Filt Rate - Afr Amer 97 mL/min (>60); Glucose 96 mg/dL (74-106); High Density Lipoprotein 51 mg/dL; Potassium 3.3 mmol/L (3.5-5.1); Sodium Level 140 mmol/L (136-145); Thyroid Stim Hormone (TSH) 2.69 uIU/mL (0.358-3.74); Triglycerides 234 mg/dL; Very Low Density Lipoprotein 47 mg/dL (5-40)
== END ==
PROVIDERS: PCP Family Medicine; Referring Provider Family Medicine; Visit Provider Family Medicine
DX: I10 Essential (primary) hypertension (principal); E03.9 Hypothyroidism, unspecified
CPT/HCPCS: 36415; 80048; 80061; 84443

== ENCOUNTER → 2020-02-07 11:01 | Outpatient (CLI) | payer OTHER, SELFPAY ==
--- NOTE | 2020-02-07 11:02 | US_ITS ---
STUDY: ULTRASOUND BREAST - RIGHT REASON FOR EXAM: Female, 64 years old. Palpable lump in the right breast. TECHNIQUE: Axial and longitudinal images of the RIGHT breast were performed with a high resolution ultrasound transducer. # OF IMAGES: 34 COMPARISON: Comparison is made with prior ultrasound dated 08/31/2019 and prior mammogram dated 08/31/2019. FINDINGS: RIGHT Breast: There is a 2 cm x 2.4 cm x 2 cm hyperechoic nodule at the medial aspect of the right breast. A similar appearing nodule is seen in the axillary region measuring 1.5 cm x 3.1 cm x 1.2 cm. This most likely presents a lipoma. It is also evidence of a 2 cm x 1.2 cm x 0.8 cm benign-appearing axillary lymph nodes. US/Breast Limited Unilateral IMPRESSION: Stable examination. ASSESSMENT CATEGORY: BIRADS Category 2: Benign. A letter regarding these results will be sent to the patient by the facility within 30 days. Electronically Signed: Edward Gonsales, at 14:33 EDT , Service support ,
== END ==
PROVIDERS: PCP Family Medicine; Referring Provider Family Medicine; Visit Provider Family Medicine
DX: N63.10 Unspecified lump in the right breast, unspecified quadrant (principal)
CPT/HCPCS: 76642

== ENCOUNTER → 2020-08-02 09:51 | Outpatient (CLI) | payer OTHER, SELFPAY ==
--- NOTE | 2020-08-02 10:30 | VDLE_ITS ---
Reason For Study: pain RIGHT GSV is normal. CFV is compressible, spontaneous, phasic, competent and demonstrates normal augmentation. FV is compressible, spontaneous, phasic, competent and demonstrates normal augmentation. POP V is compressible, spontaneous, phasic, competent and demonstrates normal augmentation. T/P Trunk is compressible. PTV is compressible. RT PerV is compressible. Soleus V is dilated and noncompressible. Procedure This is a venous duplex using B-mode, color flow and spectral Doppler. Exam performed in department. The exam was abbreviated due to the COVID 19 protocol. The exam was diagnostic. A preliminary report was called and/or faxed to [facility] phone nurse. VL/Venous Duplex US, Unilateral Interpretation Summary Acute deep vein thrombosis is noted in the right soleus vein. The remainder of the right lower extremity deep venous system is patent and compressible. Valvular competence ap pears intact within the proximal deep venous system on the right . The right great saphenous vein a ppears patent and compressible segmentally. Ordering Physician: Moreno Patino Performed By: Bryan Arango RVT
[2020-08-02 13:32] LABS: Anion Gap 2 (5-15); BUN 18 mg/dL (7-18); BUN/Creat Ratio 21.6 RATIO (10-20); Calcium,Total 9.8 mg/dL (8.5-10.1); Chloride 103 mmol/L (98-107); Creatinine, Serum 0.83 mg/dL (0.55-1.02); EST Glomerular Filtration Rate 74 mL/min (>60); Est Glom Filt Rate - Afr Amer 89 mL/min (>60); Glucose 69 mg/dL (74-106); Magnesium 2.5 mg/dL (1.6-2.6); Potassium 3.7 mmol/L (3.5-5.1); Sodium Level 140 mmol/L (136-145); Thyroid Stim Hormone (TSH) 3.49 uIU/mL (0.358-3.74)
== END ==
LOC: MFPLAB 10:17 → CVS 10:30
PROVIDERS: PCP Family Medicine; Referring Provider Family Medicine; Visit Provider Family Medicine
DX: R25.2 Cramp and spasm (principal); M79.604 Pain in right leg
CPT/HCPCS: 36415; 80048; 83735; 84443; 93971

== ENCOUNTER → 2020-11-26 12:34 | Outpatient (CLI) | payer OTHER, SELFPAY ==
--- NOTE | 2020-11-26 12:35 | BI_ITS ---
MAMMOGRAPHY - BILATERAL SCREENING REASON FOR EXAM: Female, 65 years old. Routine annual screening examination. PERTINENT HISTORY: Non-contributory. TECHNIQUE: Digital bilateral breast phuc (3D mammographic acquisition) in the CC and MLO projections. 2-D mediolateral oblique (MLO) and craniocaudad (CC) views of both breasts were obtained. CAD: Full Field Digital Mammography with Computer Added Detection was performed. COMPARISON: Comparison is made with prior studies of 08/31/2019. FINDINGS: Breast Composition: There are scattered areas of fibroglandular density. There is a 1.8 cm x 1.6 cm well-defined nodule in the central lateral aspect of the left breast. Correlation with ultrasound is recommended. No other significant abnormalities are identified. BI/SCRN MAMM (CAD)W/PHUC BILAT IMPRESSION: 1.8 cm x 1.6 cm well-defined nodule in the central lateral aspect of the left breast. Correlation with ultrasound is recommended. ASSESSMENT CATEGORY: BIRADS Category 0: Incomplete. Need additional imaging evaluation. A letter regarding these results will be sent to the patient by the facility within 30 days. Approximately 10% of breast cancers are not detected by mammography. A normal mammogram should not delay biopsy of a clinically suspicious abnormality. [id number] Electronically Signed: Edward Gonsales MD at 13:32 EDT , Service support ,
== END ==
PROVIDERS: PCP Family Medicine; Referring Provider Family Medicine; Visit Provider Family Medicine
DX: Z12.31 Encounter for screening mammogram for malignant neoplasm of breast (principal)
CPT/HCPCS: 77063; 77067

== ENCOUNTER → 2020-11-27 09:34 | Outpatient (CLI) | payer OTHER, SELFPAY ==
--- NOTE | 2020-11-27 09:36 | US_ITS ---
STUDY: ULTRASOUND BREAST - LEFT REASON FOR EXAM: Female, 65 years old. Abnormal screening mammogram. TECHNIQUE: Axial and longitudinal images of the LEFT breast were performed with a high resolution ultrasound transducer. # OF IMAGES: 38 COMPARISON: Comparison is made with prior mammogram dated 11/26/2020. FINDINGS: LEFT Breast: The mammographic abnormality corresponds to a 2 cm x 1.5 cm x 0.8 cm cyst at the 3 o''clock position of the breast at 8 cm from nipple. There is also evidence of 2 subcentimeter cysts at the 2 o''clock position of the breast at 6 cm from nipple. US/Breast Limited Unilateral IMPRESSION: Dominant cyst measuring 2 cm x 1.5 cm x 0.8 cm at the 3 o''clock position of the breast at 8 cm from the nipple. ASSESSMENT CATEGORY: BIRADS Category 2: Benign. A letter regarding these results will be sent to the patient by the facility within 30 days. Electronically Signed: Edward Gonsales MD at 10:41 EDT , Service support ,
== END ==
LOC: OPUS 09:35
PROVIDERS: PCP Family Medicine; Referring Provider Family Medicine; Visit Provider Family Medicine
DX: R92.8 Other abnormal and inconclusive findings on diagnostic imaging of breast (principal); N63.0 Unspecified lump in unspecified breast
CPT/HCPCS: 76642

== ENCOUNTER → 2020-12-18 14:33 | Outpatient (CLI) | payer OTHER, SELFPAY | PROVIDERS: PCP Family Medicine; Visit Provider Family Medicine | DX: B34.9 Viral infection, unspecified (principal) | CPT/HCPCS: 87635; U0005; U0003 ==

== ENCOUNTER → 2021-01-29 08:43 | Outpatient (CLI) | payer OTHER, SELFPAY ==
[2021-01-29 10:19] LABS: ALB/GLOB Ratio 0.8 RATIO (0.9-2.4); AST(SGOT) 18 U/L (15-37); Alanine Aminotransfer ALT/SGPT 28 U/L (13-56); Albumin, Serum 3.3 g/dL (3.2-5.0); Alkaline Phosphatase 86 U/L (45-117); Anion Gap 6 (5-15); BUN 12 mg/dL (7-18); BUN/Creat Ratio 16.5 RATIO (10-20); Calcium,Total 9.5 mg/dL (8.5-10.1); Chloride 101 mmol/L (98-107); Cholesterol 180 mg/dL (200); Creatinine, Serum 0.73 mg/dL (0.55-1.02); EST Glomerular Filtration Rate 86 mL/min (>60); Est Glom Filt Rate - Afr Amer 104 mL/min (>60); Globulin 4.4 g/dL (2.2-4.2); Glucose 92 mg/dL (74-106); High Density Lipoprotein 42 mg/dL; Potassium 3.2 mmol/L (3.5-5.1); Protein, Total 7.7 g/dL (6.4-8.2); Sodium Level 141 mmol/L (136-145); Thyroid Stim Hormone (TSH) 0.38 uIU/mL (0.358-3.74); Triglycerides 206 mg/dL; Very Low Density Lipoprotein 41 mg/dL (5-40)
== END ==
PROVIDERS: PCP Family Medicine; Referring Provider Family Medicine; Visit Provider Family Medicine
DX: E78.5 Hyperlipidemia, unspecified (principal); E03.9 Hypothyroidism, unspecified
CPT/HCPCS: 36415; 80053; 80061; 84443

== ENCOUNTER 2021-03-12 08:00 | Outpatient (RCR) | payer OTHER, SELFPAY ==
--- NOTE | 2020-11-01 10:19 | HP.PTEVAL_ITS ---
Patient's Visit Information THOR STRONG is a 65 year old F referred to Physical Therapy by Dr. Edouard Vazquez MD with a diagnosis of R knee weakness, history of R TKA. Date of Evaluation: 10/29/20 Physical Therapist: Lefty Simpson DPT - Visit Plan Frequency: 2x /Week Duration: 4 Weeks Plan: Start with quad stretching, quad strengthening (focus on eccentric if possible). Add in glute med/max strenghtening as well. - Subjective Pt. is here today for her initial evaluation with diagnosis of R knee after history of R TKA (October 2019). Pt. reports overall doing well, but is having some trouble with descending steps, walking and feels that it is weak. No N/T. Pt. reports mild issues with sleeping, most due to hip pain. Pt. is back to work, and is doing well, minus stair negotiation. Increased pain: prolonged walking, descending steps. Decreased pain: rest, ice. Pt. is overall feeling well, but would like to feel better with stair negotiation. Pt. was previously working out in the pool, but had to stop as she is taking an only class and is very busy between work and school. Pt. reports pain gets as bad as 8/10 with descending the steps, but minimal pain with walking. She reports pain is located at superior aspect of R patella near quad insertion. Pt. is hopeful to get back to all recreational activities without limitations. - Pain R knee Pain Intensity (Out of 10): 0 Pain Intensity Range: 0, 8 Comment: superior to patella, worst with stairs - Objective POSTURE: Pt. has descent posture in stance. Pt. is able to get full TKE in B knees. No lateral wt. shifting noted. PALPATION: pt. has tenderness at distal squat tendon at superior aspect of R patella. She does reports mild medial joint line pain, but the majority of her pain is at superior aspect of patella. NEURO: Pt. has normal sensation and DTR of bilateral LEs. Pt. is able to rise on heels and toes without issues. ROM: L knee: 0-0-110deg, R knee 0-0-125deg. Pt. reports increased tightness at superior aspect of R patella with increased knee flexion. Pt. felt similar with violeta quad stretch proper to end range of her knee ROM, suggesting tight quads. MMT: RLE- ankle 5/5 throughout; knee: ext 4+/5, flexion 4+/5; hip- flexion 4/5, abd 4/5, ext 4/5. LLE: 5-/5 throughout. GAIT: Pt. ambulates without AD, with good knee mechanics. She does have slight B knee valgus positioning during stance phase. STAIRS: Pt. has marked functional weakness of her quad and glutes with ascending, but worse with descending stairs. - Goals Goal 1:: LTG: Pt. to be I with HEP. Goal Time Frame: 2-4 Weeks Goal 2:: STG: Pt. to have increased quad length indicated by increased ROM with violeta stretching. Goal Time Frame: 2-4 Weeks Goal 3:: LTG: Pt. to have increased RLE strength to at least 5-/5 throughout. Goal Time Frame: 4-6 Weeks Goal 4:: LTG: Pt. to negotiate steps with reciprocal pattern with good eccentric control of RLE. Goal Time Frame: 4-6 Weeks Goal 5:: STG: Pt. to walk unlimited distances without increase in symptoms. Goal Time Frame: 2-4 Weeks - Rehabilitation Potential Physical Therapy Diagnosis: Pt. has signs and symptoms consistent with pain at superior aspect of patella near quad tendon insertion. Pt. has some marked quad/glute weakness and tightness in her quad muscle. Pt would benefit from PT to work on RLE strengthening, and quad stretching. Rehabilitation Potential: Excellent - Anticipated Interventions Patient/Client Instruction: Educate patient on: Condition, Plan of Care, Risk Factors, Benefits of Fitness Program For the Purpose of:: To foster healthy habits, To improve decision making, To facilitate caregiver knowledge, To improve self management, To prevent re- injury, To improve ability to perform tasks related to life management Therapeutic Exercise to Include: Strength training, Power training, Body mechanics, Flexibilty training For the Purpose of:: To decrease pain, To decrease swelling/inflammation, To increase ROM, To improve nutrient delivery to tissue, To increase oxygenation perfusion, To improve muscle performance and motor function Manual Therapy Techniques to Include: Mobilization, Soft tissue mobilization For the Purpose of:: To decrease pain, To decrease swelling/inflammation, To increase ROM Thank you for the opportunity to evaluate your patient. For Medicare and Medicare HMO plans, please review the plan of care and approve it. It will need to be FAXED BACK to us at [phone] for Medicare purposes. For Medicare only, by signing this I certify the plan of care. Please let me know if there are questions or concerns regarding this plan of care. Physician Signature: Date:
--- NOTE | 2020-11-29 11:03 | HP.PTREVAL_ITS ---
Dr. Edouard Vazquez MD, It has been my pleasure to treat THOR STRONG over the last 5 visits for R knee weakness, history of R TKA. Please see the progress note below for an update on the physical therapy plan of care! Subjective: Pt. reports no pain currently. Pt. reports working out hard in the pool on Thursday and was sore the next. Better today. pt. reports being 50% better overall. Objective/Function: Pt. tolerated all PT well without issues. Pt. did well with graston then strengthening exercises. pt. pleased. STAIRS: Pt. is able to negotiate stairs with reciprocal pattern without mild symptoms with descending, no pain with ascending. Use of BHR. ROM: Pt. is able to achieve TKE with over pressure, pt. able to achieve 117deg of knee flexion actively. MMT: Pt. has 4+/5 throughout RLE, except 5-/5 with HS and hip flexion today. GAIT: Pt. is walking better with good mechanics. Pt. reports no issues with gait. Over she is progressing well. At this point in time I would like her to start to progress to independence with her HEP. I will see her every 2 weeks to progress HEP to independent program. Plan Plan: POC extended x1 per every other week. Focus on progressing HEP to independent program. Balance/Gait/Functional tests - Balance/Special Test Scores Lower Extremity Functional Score: 43 Goals Goal 1:: LTG: Pt. to be I with HEP. Goal Time Frame: 2-4 Weeks Goal Progress: Progressing Goal 2:: STG: Pt. to have increased quad length indicated by increased ROM with violeta stretching. Goal Time Frame: 2-4 Weeks Goal Progress: Progressing Goal 3:: LTG: Pt. to have increased RLE strength to at least 5-/5 throughout. Goal Time Frame: 4-6 Weeks Goal Progress: Progressing Goal 4:: LTG: Pt. to negotiate steps with reciprocal pattern with good eccentric control of RLE. Goal Time Frame: 4-6 Weeks Goal Progress: Progressing Goal 5:: STG: Pt. to walk unlimited distances without increase in symptoms. Goal Time Frame: 2-4 Weeks Goal Progress: Progressing Anticipated Interventions Patient/Client Instruction: Educate patient on: Condition, Plan of Care, Risk Factors, Benefits of Fitness Program For the Purpose of:: To foster healthy habits, To improve decision making, To facilitate caregiver knowledge, To improve self management, To prevent re- injury, To improve ability to perform tasks related to life management Therapeutic Exercise to Include: Strength training, Power training, Body mechanics, Flexibilty training For the Purpose of:: To decrease pain, To decrease swelling/inflammation, To inc rease ROM, To improve nutrient delivery to tissue, To increase oxygenation perfusion, To improve muscle performance and motor function Manual Therapy Techniques to Include: Mobilization, Soft tissue mobilization For the Purpose of:: To decrease pain, To decrease swelling/inflammation, To increase ROM Please do not hesitate to contact me at [phone] by phone or if you have questions or concerns regarding this new plan of care! Sincerely, Lefty Simpson DPT
--- NOTE | 2021-02-13 15:11 | HP.PTREVAL_ITS ---
Dr. Edouard Vazquez MD, It has been my pleasure to treat THOR STRONG over the last 7 visits for R knee weakness, history of R TKA. Please see the progress note below for an update on the physical therapy plan of care! Subjective: Pt reports achiness in thigh from knee to hip. She reports increasing achiness during aquatic therapy with butt kicks. Objective/Function: ROM: Knee flexion 116, ext 0deg. STRENGTH: R Hip: flexion 4, abduction 5, adduction 4+ , Knee flexion 5, extension 5; L Hip: flexion 4, abduction 5, adduction 4+ , Knee flexion 5, extension. gait: Pt. has good gait pattern without issues. STAIRS: decent knee flexion/extension with good tolerance. Uses 1 HR to complete. She reports her main compliant is of her R thigh, knee to min thigh becomes sore throughout the day, especially with a lot of activity that day. Pt. is starting to be more active in gym and pool settings. I recommended to her to continue to strengthening BLE, R quad, glute medius. As well as stretch her quad. I stressed consistency with her to increased carry over to get better strength gains. Pt. consents. Pt able to progress strengthening exercises, still has some hip weakness. Plan Plan: Continue to strengthen hip musculature and progress exercises as tolerated. I would like to see her again in a few weeks to progress her exercises and monitor strength and tolerance. Balance/Gait/Functional tests - Balance/Special Test Scores Lower Extremity Functional Score: 43 Goals Goal 1:: LTG: Pt. to be I with HEP. Goal Time Frame: 2-4 Weeks Goal Progress: Progressing Goal 2:: STG: Pt. to have increased quad length indicated by increased ROM with violeta stretching. Goal Time Frame: 2-4 Weeks Goal Progress: Progressing Goal 3:: LTG: Pt. to have increased RLE strength to at least 5-/5 throughout. Goal Time Frame: 4-6 Weeks Goal Progress: Progressing Goal 4:: LTG: Pt. to negotiate steps with reciprocal pattern with good eccentric control of RLE. Goal Time Frame: 4-6 Weeks Goal Progress: Progressing Goal 5:: STG: Pt. to walk unlimited distances without increase in symptoms. Goal Time Frame: 2-4 Weeks Goal Progress: Progressing Anticipated Interventions Patient/Client Instruction: Educate patient on: Condition, Plan of Care, Risk Factors, Benefits of Fitness Program For the Purpose of:: To foster healthy habits, To improve decision making, To facilitate caregiver knowledge, To improve self management, To prevent re- injury, To improve ability to perform tasks related to life management Therapeutic Exercise to Include: Strength training, Power training, Body mechanics, Flexibilty training For the Purpose of:: To decrease pain, To decrease swelling/inflammation, To increase ROM, To improve nutrient delivery to tissue, To increase oxygenation perfusion, To improve muscle performance and motor function Manual Therapy Techniques to Include: Mobilization, Soft tissue mobilization For the Purpose of:: To decrease pain, To decrease swelling/inflammation, To increase ROM Please do not hesitate to contact me at [phone] by phone or if you have questions or concerns regarding this new plan of care! Sincerely, FLO BartlettT
--- NOTE | 2021-03-12 11:28 | HP.PTREVAL_ITS ---
Dr. Edouard Vazquez MD, It has been my pleasure to treat THOR STRONG over the last 9 visits for R knee weakness, history of R TKA. Please see the progress note below for an update on the physical therapy plan of care! Subjective: Pt reports her knee has been doing much better, but is sore today. Objective/Function: ROM: AROM knee :5-0-116 PROM. STRENGTH: RIGHT: hip: flexion 4 , IR 4, ER 4, ext 5/5, abd 4/5, knee :flexor 5/5, extensor 5/5. Pt. has decent gait at this point in time. She has minimal antalgic pattern. Stairs with reciprocal pattern, but does use HR to complete. Pt able to perform and progress exercises today, continues to have difficulty with eccentric quad control. She has been given HEP for both land and water at this point in time Plan Plan: Continue to strengthen hip musculature and progress exercises as tolerated. Pt. to follow back up with physician tomorrow, to determine best course of action. Balance/Gait/Functional tests - Balance/Special Test Scores Lower Extremity Functional Score: 43 Goals Goal 1:: LTG: Pt. to be I with HEP. Goal Time Frame: 2-4 Weeks Goal Progress: Progressing Goal 2:: STG: Pt. to have increased quad length indicated by increased ROM with violeta stretching. Goal Time Frame: 2-4 Weeks Goal Progress: Progressing Goal 3:: LTG: Pt. to have increased RLE strength to at least 5-/5 throughout. Goal Time Frame: 4-6 Weeks Goal Progress: Progressing Goal 4:: LTG: Pt. to negotiate steps with reciprocal pattern with good eccentric control of RLE. Goal Time Frame: 4-6 Weeks Goal Progress: Progressing Goal 5:: STG: Pt. to walk unlimited distances without increase in symptoms. Goal Time Frame: 2-4 Weeks Goal Progress: Progressing Anticipated Interventions Patient/Client Instruction: Educate patient on: Condition, Plan of Care, Risk Factors, Benefits of Fitness Program For the Purpose of:: To foster healthy habits, To improve decision making, To facilitate caregiver knowledge, To improve self management, To prevent re- injury, To improve ability to perform tasks related to life management Therapeutic Exercise to Include: Strength training, Power training, Body mechanics, Flexibilty training For the Purpose of:: To decrease pain, To decrease swelling/inflammation, To increase ROM, To improve nutrient delivery to tissue, To increase oxygenation perfusion, To improve muscle performance and motor function Manual Therapy Techniques to Include: Mobilization, Soft tissue mobilization For the Purpose of:: To decrease pain, To decrease swelling/inflammation, To increase ROM Please do not hesitate to contact me at [phone] by phone or if you have questions or concerns regarding this new plan of care! Sincerely, FLO BartlettT
== END 2021-03-12 19:00 | disposition home or self-care (01) ==
LOC: PT 08:00
PROVIDERS: PCP Family Medicine; Visit Provider Specialist
DX: Z96.651 Presence of right artificial knee joint (principal)
CPT/HCPCS: 97110; 97161; 97164

== ENCOUNTER 2021-07-31 07:20 | Outpatient (CLI) | payer OTHER, SELFPAY ==
[2021-07-31 10:46] LABS: Anion Gap 6 (5-15); BUN 15 mg/dL (7-18); BUN/Creat Ratio 19.6 RATIO (10-20); Calcium,Total 9.6 mg/dL (8.5-10.1); Chloride 103 mmol/L (98-107); Cholesterol 170 mg/dL (200); Creatinine, Serum 0.77 mg/dL (0.55-1.02); EST Glomerular Filtration Rate 81 mL/min (>60); Est Glom Filt Rate - Afr Amer 98 mL/min (>60); Glucose 92 mg/dL (74-106); High Density Lipoprotein 38 mg/dL; Potassium 3.2 mmol/L (3.5-5.1); Sodium Level 141 mmol/L (136-145); Thyroid Stim Hormone (TSH) 0.12 uIU/mL (0.358-3.74); Triglycerides 191 mg/dL; Very Low Density Lipoprotein 38 mg/dL (5-40)
== END 2021-07-31 23:59 | disposition home or self-care (01) ==
PROVIDERS: PCP Registered Nurse; Referring Provider Registered Nurse; Visit Provider Registered Nurse
DX: I10 Essential (primary) hypertension (principal); E78.5 Hyperlipidemia, unspecified; E03.9 Hypothyroidism, unspecified
CPT/HCPCS: 36415; 80048; 80061; 84443

== ENCOUNTER → 2021-09-23 | Outpatient (CLI) | payer OTHER, SELFPAY ==
[2021-09-23 10:30] LABS: Anion Gap 5 (5-15); BUN 15 mg/dL (7-18); BUN/Creat Ratio 20.5 RATIO (10-20); Calcium,Total 9.8 mg/dL (8.5-10.1); Chloride 106 mmol/L (98-107); Creatinine, Serum 0.73 mg/dL (0.55-1.02); EST Glomerular Filtration Rate 85 mL/min (>60); Est Glom Filt Rate - Afr Amer 103 mL/min (>60); Glucose 99 mg/dL (74-106); Potassium 3.8 mmol/L (3.5-5.1); Sodium Level 140 mmol/L (136-145); Thyroid Stim Hormone (TSH) 0.65 uIU/mL (0.358-3.74)
== END | disposition home or self-care (01) ==
LOC: MTLAB 08:46
PROVIDERS: PCP Registered Nurse; Referring Provider Registered Nurse; Visit Provider Registered Nurse
DX: E87.6 Hypokalemia (principal); E03.9 Hypothyroidism, unspecified
CPT/HCPCS: 36415; 80048; 84443

== ENCOUNTER → 2022-01-09 | Outpatient (CLI) | payer OTHER, SELFPAY ==
[2022-01-09 10:11] LABS: Anion Gap 4 (5-15); BUN 15 mg/dL (7-18); BUN/Creat Ratio 18.9 RATIO (10-20); Calcium,Total 9.7 mg/dL (8.5-10.1); Chloride 104 mmol/L (98-107); Creatinine, Serum 0.79 mg/dL (0.55-1.02); EST Glomerular Filtration Rate 78 mL/min (>60); Est Glom Filt Rate - Afr Amer 94 mL/min (>60); Glucose 92 mg/dL (74-106); Potassium 3.7 mmol/L (3.5-5.1); Sodium Level 141 mmol/L (136-145)
== END | disposition home or self-care (01) ==
LOC: MFPLAB 09:17
PROVIDERS: PCP Family Medicine; Referring Provider Family Medicine; Visit Provider Family Medicine
DX: I10 Essential (primary) hypertension (principal)
CPT/HCPCS: 36415; 80048

== ENCOUNTER → 2022-02-10 | Outpatient (CLI) | payer OTHER, SELFPAY ==
--- NOTE | 2022-02-10 12:02 | BI_ITS ---
MAMMOGRAPHY - BILATERAL SCREENING REASON FOR EXAM: Female, 66 years old. Routine annual screening examination. PERTINENT HISTORY: Non-contributory. TECHNIQUE: Digital bilateral breast phuc (3D mammographic acquisition) in the CC and MLO projections. 2-D mediolateral oblique (MLO) and craniocaudad (CC) views of both breasts were obtained. CAD: Full Field Digital Mammography with Computer Added Detection was performed. COMPARISON: Comparison is made to prior examination dated 11/26/2020 and 08/31/2019. FINDINGS: Breast Composition: There are scattered areas of fibroglandular density. Stable 2 cm x 1.6 cm well-defined nodule in the deep central lateral aspect of the left breast. This was demonstrated to be a cyst on prior sonogram. No other significant abnormalities are identified. There has been no significant change since the prior study. BI/SCRN MAMM (CAD)W/PHUC BILAT IMPRESSION: Stable bilateral screening mammogram. Yearly follow-up mammogram recommended. (A) ASSESSMENT CATEGORY: BIRADS Category 2: Benign. A letter regarding these results will be sent to the patient by the facility within 30 days. Approximately 10% of breast cancers are not detected by mammography. A normal mammogram should not delay biopsy of a clinically suspicious abnormality. [id number] Electronically Signed: Edward Gonsales MD at 13:30 EDT ,
== END | disposition home or self-care (01) ==
LOC: OPBI 12:01
PROVIDERS: PCP Family Medicine; Visit Provider Family Medicine
DX: Z12.31 Encounter for screening mammogram for malignant neoplasm of breast (principal)
CPT/HCPCS: 77063; 77067

== ENCOUNTER 2022-12-31 08:25 | Outpatient (CLI) | payer MEDICARE, BC, SELFPAY ==
[2022-12-31 10:36] LABS: Absolute Lymphocyte Count 1.67 X10^3/uL (0.83-4.51); Absolute Neutrophil Count 2.7 X10^3/uL (2.0-7.7); Basophil# 0.07 X10^3/uL; Basophil% 1.4 % (0-1); Eosinophil# 0.15 X10^3/uL; Hematocrit 43.2 % (37-47); Hemoglobin 13.8 g/dL (12.0-15.0); Lymphocyte # 1.67 X10^3/ul (0.83-4.51); Lymphocyte % 33.5 % (19-41); Mean Corp Hgb Conc 31.9 g/dL (32-36); Mean Corpuscular Hgb 30.3 pg (27.0-32.0); Mean Corpuscular Volume 94.7 fL (81-99); Mean Platelet Vol. 10.6 fl (6.2-12.0); Monocyte# 0.35 X10^3/uL; NRBC Flagged by Analyzer 0 % (0-5); Neutrophil # 2.73 X10^3/uL (2.7-7.7); Neutrophil % 54.9 % (47-70); Platelet Count 303 K/mm3 (150-450); RBC Distribution Width CV 12.6 % (11.6-14.6); RBC Distribution Width SD 43.8 fl (35.1-43.9); Red Blood Count 4.56 M/mm3 (4.2-5.4)
[2022-12-31 11:20] LABS: ALB/GLOB Ratio 0.9 RATIO (0.9-2.4); AST(SGOT) 13 U/L (15-37); Alanine Aminotransfer ALT/SGPT 27 U/L (13-56); Albumin, Serum 3.4 g/dL (3.2-5.0); Alkaline Phosphatase 79 U/L (45-117); Anion Gap 4 (5-15); BUN 14 mg/dL (7-18); BUN/Creat Ratio 18.5 RATIO (10-20); Calcium,Total 9.4 mg/dL (8.5-10.1); Chloride 107 mmol/L (98-107); Cholesterol 192 mg/dL (200); Creatinine, Serum 0.76 mg/dL (0.55-1.02); EST Glomerular Filtration Rate 81 mL/min (>60); Est Glom Filt Rate - Afr Amer 98 mL/min (>60); Ferritin 65 ng/mL (8-252); Globulin 3.9 g/dL (2.2-4.2); Glucose 102 mg/dL (74-106); High Density Lipoprotein 42 mg/dL; Potassium 3.7 mmol/L (3.5-5.1); Protein, Total 7.3 g/dL (6.4-8.2); Sodium Level 142 mmol/L (136-145); Thyroid Stim Hormone (TSH) 6.69 uIU/mL (0.358-3.74); Triglycerides 216 mg/dL; Very Low Density Lipoprotein 43 mg/dL (5-40)
[2022-12-31 11:26] LABS: Microalbumin,Random Urine 12.6 mg/L (NO RANGE EST.)
[2022-12-31 12:28] LABS: Vitamin B12 428 pg/mL (211-911); Vitamin D,25 Hydroxy 29.2 ng/mL
== END 2022-12-31 23:59 | disposition home or self-care (01) ==
LOC: MTLAB 08:27
PROVIDERS: PCP Family Medicine; Referring Provider Family Medicine; Visit Provider Family Medicine
DX: K21.9 Gastro-esophageal reflux disease without esophagitis (principal); I10 Essential (primary) hypertension; E78.5 Hyperlipidemia, unspecified; Z13.820 Encounter for screening for osteoporosis
CPT/HCPCS: 36415; 80053; 80061; 82043; 82306; 82607; 82728; 84443; 85025

== ENCOUNTER → 2023-02-12 | Outpatient (CLI) | payer MEDICARE, BC, SELFPAY ==
--- NOTE | 2023-02-12 09:32 | BI_ITS ---
MAMMOGRAPHY - BILATERAL SCREENING REASON FOR EXAM: Female, 67 years old. Routine annual screening examination. PERTINENT HISTORY: Non-contributory. TECHNIQUE: Digital bilateral breast phuc (3D mammographic acquisition) in the CC and MLO projections. 2-D mediolateral oblique (MLO) and craniocaudad (CC) views of both breasts were obtained. CAD: Full Field Digital Mammography with Computer Added Detection was performed. COMPARISON: Comparison is made with prior study February 10, 2022 and November 26, 2020. FINDINGS: Breast Composition: There are scattered areas of fibroglandular density. There are no dominant masses or suspicious calcifications. The previously seen 2 cm x 1.6 cm nodule in the deep central lateral aspect of the left breast has decreased in size. No other significant abnormalities are identified. BI/SCRN MAMM (CAD)W/PHUC BILAT IMPRESSION: Stable bilateral screening mammogram. Yearly follow-up mammogram recommended. (A) ASSESSMENT CATEGORY: BIRADS Category 2: Benign. A letter regarding these results will be sent to the patient by the facility within 30 days. Approximately 10% of breast cancers are not detected by mammography. A normal mammogram should not delay biopsy of a clinically suspicious abnormality. [id number] Electronically Signed: Edward Gonsales MD at 10:38 EDT ,
--- NOTE | 2023-02-12 09:33 | BD_ITS ---
STUDY: DUAL ENERGY X-RAY ABSORPTIOMETRY / DXA REASON FOR EXAM: Female, 67 years old. [id number] TECHNIQUE: Bone Mineral Density (BMD) measurements of lumbar spine and bilateral hips were obtained. COMPARISON: Comparison is made with prior study dated July 14, 2017. FINDINGS: Lumbar Spine (L1-L4): g/cm2 (0.950) / T-score (-1.0) / Z-score (0.9) Findings are suggestive of normal bone density with a low fracture risk. Left Femur Total: g/cm2 (0.920) / T-score (-0.2) / Z-score (1.1) Left Femoral Neck: g/cm2 (0.791) / T-score (-0.5) / Z-score (1.0) Right Femur Total: g/cm2 (0.964) / T-score (0.2) / Z-score (1.5) Right Femoral Neck: g/cm2 (0.734) / T-score (minus 1.) / Z-score (0.5) The T-Scores on the most recent prior examination were: Lumbar Spine (L1-L4): There has been worsening of bone density since the previous examination. Left Femur Total: which represents a worsening of 3.2%. Right Femur Total: which represents a worsening of 1.1%. BD/Dexa Bone Density Study IMPRESSION: The patient is considered normal as outlined below according to World Brandan Organization (WHO) criteria with a low fracture risk. There has been worsening of bone density since the previous examination. Reference Information: The T-score is the number of standard deviations above or below the standard which is normal for young adults at their peak bone mineral density. The World Health Organization (WHO) interprets the T-scores as follows: Above -1 Normal bone density Between -1 and -2.5 Osteopenia Equal to / or below -2.5 Osteoporosis As a practical clinical guideline, osteopenia may be graded as follows: Mild -1 through -1.5 Moderate -1.6 through -2.0 Severe -2.1 through -2.4 The Z-score is the number of standard deviations above or below age-matched controls. A Z-score of less than -1.5 would be considered abnormal. References: 1. NIH Osteoporosis and Related Bone Diseases www osteo.org 2. International Society for Clinical Densitometry www iscd.org 3. National Osteoporosis Foundation www nof.org Electronically Signed: Edward Gonsales MD at 10:59 EDT ,
== END | disposition home or self-care (01) ==
PROVIDERS: PCP Family Medicine; Referring Provider Family Medicine; Visit Provider Family Medicine
DX: Z78.0 Asymptomatic menopausal state (principal); Z12.31 Encounter for screening mammogram for malignant neoplasm of breast
CPT/HCPCS: 77063; 77067; 77080; 87070

== ENCOUNTER → 2023-02-26 | Outpatient (CLI) | payer MEDICARE, BC, SELFPAY ==
[2023-02-26 10:38] LABS: T4 Free Direct 1.35 ng/dL (0.76-1.46); Thyroid Stim Hormone (TSH) 1.71 uIU/mL (0.358-3.74)
== END | disposition home or self-care (01) ==
LOC: MTLAB 09:21
PROVIDERS: PCP Family Medicine; Referring Provider Family Medicine; Visit Provider Family Medicine
DX: E03.9 Hypothyroidism, unspecified (principal)
CPT/HCPCS: 36415; 84439; 84443

== ENCOUNTER → 2023-04-01 | Outpatient (CLI) | payer MEDICARE, BC, SELFPAY ==
[2023-04-01 10:45] LABS: Vitamin D,25 Hydroxy 44.3 ng/mL
== END | disposition home or self-care (01) ==
PROVIDERS: PCP Family Medicine; Referring Provider Family Medicine; Visit Provider Family Medicine
DX: E03.9 Hypothyroidism, unspecified (principal); E55.9 Vitamin D deficiency, unspecified
CPT/HCPCS: 36415; 82306

== ENCOUNTER → 2023-06-24 | Outpatient (CLI) | payer MEDICARE, BC, SELFPAY ==
[2023-06-24 10:48] LABS: Anion Gap 6 (5-15); BUN 18 mg/dL (7-18); BUN/Creat Ratio 20.9 RATIO (10-20); Calcium,Total 9.7 mg/dL (8.5-10.1); Chloride 105 mmol/L (98-107); Creatinine, Serum 0.86 mg/dL (0.55-1.02); EST Glomerular Filtration Rate 70 mL/min (>60); Est Glom Filt Rate - Afr Amer 85 mL/min (>60); Glucose 122 mg/dL (74-106); Potassium 3.5 mmol/L (3.5-5.1); Sodium Level 142 mmol/L (136-145)
== END | disposition home or self-care (01) ==
PROVIDERS: PCP Family Medicine; Referring Provider Nurse Practitioner Family; Visit Provider Nurse Practitioner Family
DX: I10 Essential (primary) hypertension (principal)
CPT/HCPCS: 36415; 80048

== ENCOUNTER 2023-08-12 12:34 | Emergency (ER) | payer MEDICARE, BC, SELFPAY ==
[2023-08-12] VITALS (12 sets, daily range): BP systolic 112–194; BP diastolic 61–100; PULSE 79–101; RESP 12–26; TEMP 36.2–36.6; O2SAT 95–99; BMI 44.4
--- NOTE | 2023-08-12 15:18 | CT_ITS ---
INDICATION: trauma EXAMINATION: CT CERVICAL SPINE - CT Spine Cervical W/O Contrast Injection TECHNIQUE: Helically acquired images were obtained of the cervical spine. 2D reformatted images were reviewed. A radiation dose optimization technique was used for this scan. IV Contrast dosage and agent: None. COMPARISON: None. FINDINGS: VERTEBRAE: No fracture or traumatic subluxation. No discrete lytic or blastic abnormality. Normal alignment. Normal craniocervical junction and cervicothoracic junction. DISCS and SPINAL CANAL: Mild multilevel degenerative disc disease and spondylosis. No critical stenosis. NECK SOFT TISSUES: No prevertebral soft tissue swelling. There is no cervical adenopathy. LUNG APICES: Clear. CT/Spine Cervical without Contras IMPRESSION: No evidence of acute cervical spinal fracture or spondylolisthesis. Mild multilevel degenerative disc disease and spondylosis. Electronically Signed: Wallace Genao MD at 16:30 EDT ,
--- NOTE | 2023-08-12 15:18 | CT_ITS ---
ACR Level 3 findings have been noted. An addendum which confirms receipt of the report will follow. EXAMINATION : Head CT w/out contrast HISTORY : Trauma COMPARISON : None. TECHNIQUE : Multiple contiguous axial images were obtained from the skull base to the vertex without intravenous contrast. A radiation dose optimization technique was used for this scan. FINDINGS : Small 2 mm thickness acute subdural hematoma in the anterior left parafalcine region. There is no evidence for mass effect or midline shift. There is no extra-axial fluid collection. There are periventricular white matter changes consistent with chronic microvascular ischemic disease. There is sulcal widening and ventricular enlargement consistent with cerebral atrophy. There is normal luna-white differentiation, without CT evidence of acute ischemia or infarct. The skull base and calvarium are unremarkable. The orbits are unremarkable. The paranasal sinuses are clear. The mastoid air cells are well-aerated. The soft tissues are unremarkable. CT/Brain/Head without Contrast IMPRESSION: Acute 2 mm thickness anterior left parafalcine subdural hematoma. Chronic involutional and ischemic changes of the brain. Electronically Signed: Wallace Genao MD at 16:17 EDT ,
--- NOTE | 2023-08-12 15:18 | RAD_ITS ---
INDICATION: Trauma EXAMINATION/TECHNIQUE: X-RAY - LEFT XR Knee Complete 4 Views or More COMPARISON: None. FINDINGS: No acute fracture or malalignment. Status post total knee arthroplasty. No evidence of hardware failure or loosening. No joint effusion. The soft tissues are unremarkable. RAD/Knee 4 or More Views IMPRESSION: No acute radiographic abnormalities. Status post total knee arthroplasty. No evidence of hardware failure or loosening. Electronically Signed: Wallace Genao MD at 16:33 EDT ,
--- NOTE | 2023-08-12 15:18 | CT_ITS ---
INDICATION: Trauma EXAMINATION: CT Chest W/O Contrast Injection TECHNIQUE: Helically acquired images were obtained of the chest without IV contrast. A radiation dose optimization technique was used for this scan. COMPARISON: None. FINDINGS: Lungs: Chronic diffuse emphysematous changes. Mediastinum: The heart is mildly enlarged. No mediastinal, hilar or axillary adenopathy. The thoracic aorta is unremarkable. Pleura: Unremarkable Bones/Soft tissues: No suspicious osseous or soft tissue lesions Upper abdomen: Refer to CT chest report same date CT/Chest without Contrast IMPRESSION: No acute abnormalities in the chest. Electronically Signed: Wallace Genao MD at 16:37 EDT ,
--- NOTE | 2023-08-12 15:20 | ED.VIS.FALL ---
HPI HPI - Fall History of Present Illness Chief Complaint: Fall Narrative Narrative: 68-year-old female presents with her status post fall at the dentist office. She states that she was finished with her appointment and had already paid and was walking out when her feet got tangled up. She fell forward, onto her left knee and hit her face. She denies loss of consciousness. She was able to get herself up. She has history of bilateral knee replacements by Dr. Vazquez remotely 4 years ago. She does not take blood thinners. She sustained a small hematoma to her left forehead above her left eyebrow. Denies any neck pain. She states she fell onto her chest as well and now has sternal pain. Pain is worse with movement of her torso at her arms. She says she is mainly concerned about her sternum. PFSH PFSH Medical History no medical history Home Medications lovastatin 20 mg tablet 20 mg PO QHS 09/20/16 [History Last Taken Unknown] metoprolol tartrate 50 mg tablet 50 mg PO QHS 09/20/16 [History Last Taken Unknown] triamterene 37.5 mg-hydrochlorothiazide 25 mg tablet 1 tab PO DAILY 09/20/16 [History Last Taken Unknown] albuterol sulfate 90 mcg/actuation aerosol inhaler 1 - 2 puff inhalation Q4H PRN PRN shortness of breath or wheezing 08/12/23 [History Last Taken Unknown] famotidine 20 mg tablet (Acid Controller) 20 mg PO BID 08/12/23 [History Last Taken Unknown] fluticasone propion-salmeterol inhalation 08/12/23 [History Last Taken Unknown] levothyroxine 175 mcg tablet 175 mcg PO DAILY 08/12/23 [History Last Taken Unknown] Allergy/AdvReac Type Severity Reaction Status Date / Time adhesive AdvReac Other Verified 08/12/23 12:38 erythromycin base AdvReac Upset Verified 08/12/23 12:38 Stomach hydrocodone [From Vicodin] AdvReac Other Verified 08/12/23 12:38 Social History Smoking Status: Never smoker ROS ROS ED ROS Narrative Constitutional: No fever, no chills. HEENT: No sore throat. No neck pain. No loss of vision. No rhinorrhea. Small hematoma on left forehead. Cardiovascular: Positive sternal/chest pain. No palpitations. No pedal edema. Respiratory: No cough, no shortness of breath. Abdominal: No abdominal pain. No nausea. No vomiting. Genitourinary: No dysuria. No hematuria. Musculoskeletal: No myalgias. Left knee pain. Neurologic: No headaches. No dizziness. No lightheadedness. Skin: No rash. No change in color. Psychiatric: No depression. No anxiety. EXAM Physical Exam Narrative Exam Narrative: Afebrile. Vital signs noted. GCS 15. ABCs intact. HEENT: Normocephalic. Small hematoma/contusion above left eyebrow more medially. PERRL, EOMI. no entrapment. Neck soft and supple. No point tenderness or step off. Full range of motion without pain. Cardiovascular: Regular rate and rhythm. No murmurs, rubs, or gallops appreciated. Positive tenderness to palpation sternum and manubrium, no crepitance. Respiratory: No tachypnea. Lungs clear to auscultation bilaterally. Gastrointestinal: Abdomen soft, nontender, with normoactive bowel sounds. No rebound or guarding. Neurological: Awake. Alert. Nonfocal, nonlateralizing. Skin: No rash. Normal color. No pallor. Musculoskeletal: No pedal edema. Full range of motion extremities. Flexion extension left knee intact. Well-healed scar left knee noted. Neurovascular intact distally with palpable dorsalis pedis pulse. Flexion and dorsiflexion bilateral feet intact. Const Vital Signs: 08/12/23 12:35 08/12/23 15:30 08/12/23 16:40 Temperature 97.8 F Temperature Source Temporal Pulse Rate 80 101 H Respiratory Rate 16 26 H Respiratory Effort Normal Respiratory Depth Normal Respiratory Pattern Normal Blood Pressure 162/91 H 166/91 H Blood Pressure Mean 114 116 Pulse Ox 98 99 Oxygen Delivery Method Room Air Room Air Room Air 08/12/23 17:08 08/12/23 17:22 08/12/23 17:45 Temperature Temperature Source Pulse Rate 86 85 Respiratory Rate 16 18 Respiratory Effort Respiratory Depth Respiratory Pattern Blood Pressure 194/92 H 164/92 H 143/81 H Blood Pressure Mean 126 116 101 Pulse Ox 98 98 Oxygen Delivery Method Room Air Room Air MDM MDM MDM Narrative Medical decision making narrative: Patient is not on blood thinners and there was no loss of consciousness. Concern would be more for closed head injury then intracranial hemorrhage and skull fracture although this is in the differential. I have low concern for cervical spine fracture, but given the mechanism of action, CT of the brain and CT of the cervical spine will be obtained. She may have more of a sternal contusion than a fracture, but CT will be obtained of the sternum to rule out fracture as well. I do not feel she needs IV contrast at this point in time. She would like to start with ibuprofen as an analgesic as she was offered something stronger but declined. I do feel that x-ray of the left knee should be obtained to rule out periprosthetic fracture. X-rays of the left knee and 4 views interpreted by myself independently shows no evidence of periprosthetic fracture. I reviewed the radiology report which confirms my independent interpretation. I reviewed the radiology report for the CT of the cervical spine which shows degenerative changes but no acute fracture. Additionally, I reviewed the CT of the sternum and thorax which also shows no evidence of acute fracture. Of significance is the report for the CT of the head without contrast which shows a 2 mm thick subdural hematoma near the falx. Given her intracranial hemorrhage and subdural hemorrhage, I do feel that she requires transfer to a level 1 trauma center for further observation. I discussed the patient with Dr. Schwab with trauma services at [facility] at the patient's request because that is where she would like to be transferred. He has accepted her in transfer to the ICU. I will draw laboratory work. EKG was obtained and interpreted by myself independently which demonstrates normal sinus rhythm at 90 bpm without ectopy or acute ST changes. No STEMI. I reviewed her laboratory work and it is grossly unremarkable with a normal white count of 8.6 and hemoglobin normal at 14.4, INR normal at 1.0, electrolyte panel is grossly unremarkable. I feel that she can be transferred in guarded condition. Critical care time 31 minutes. History & Record Review Discussion w/independent historian: Patient and Family Lab Data Attestation: I reviewed the patient's lab results. Labs: Laboratory Results - last 24 hr 08/12/23 16:57 WBC 8.6 RBC 4.83 Hgb 14.4 Hct 44.3 MCV 91.7 MCH 29.8 MCHC 32.5 RDW Std Deviation 42.7 RDW Coeff of [place] 12.8 Plt Count 291 MPV 9.8 Immature Gran % (Auto) 0.300 Neut % (Auto) 73.7 H Lymph % (Auto) 16.8 L [place] % (Auto) 7.1 Eos % (Auto) 1.4 Baso % (Auto) 0.7 Absolute Neuts (auto) 6.4 Absolute Lymphs (auto) 1.45 Nucleated RBC % 0 PT 12.6 INR 1.0 APTT 23.4 L Sodium 139 Potassium 3.5 Chloride 105 Carbon Dioxide 29.0 Anion Gap 5 BUN 15 Creatinine 0.75 Estim Creat Clear Calc 93.81 Est GFR (MDRD) Af Amer 99 Est GFR (MDRD) Non-Af 82 BUN/Creatinine Ratio 19.9 Glucose 97 Calcium 10.0 Total Bilirubin 0.50 AST 17 ALT 28 Alkaline Phosphatase 78 Total Protein 7.8 Albumin 3.7 Globulin 4.1 Albumin/Globulin Ratio 0.9 Ethyl Alcohol 8.0 Radiography Diagnostic Testing: Clinical Impression(s) from Imaging Studies Brain CT 08/12/23 15:18 IMPRESSION: Acute 2 mm thickness anterior left parafalcine subdural hematoma. Chronic involutional and ischemic changes of the brain. Electronically Signed: Wallace Genao MD at 16:17 EDT , ADDENDUM: 08/12/23 1630 IMPRESSION: Acute 2 mm thickness anterior left parafalcine subdural hematoma. Chronic involutional and ischemic changes of the brain. N.B. : Norman Mariee MD, confirmed on 08/12/2023 16:23:39 (ET) that the healthcare facility has received the radiology report. Electronically Signed: Wallace Genao MD at 16:17 EDT , Cervical Spine CT 08/12/23 15:18 IMPRESSION: No evidence of acute cervical spinal fracture or spondylolisthesis. Mild multilevel degenerative disc disease and spondylosis. Electronically Signed: Wallace Genao MD at 16:30 EDT , Chest CT 08/12/23 15:18 IMPRESSION: No acute abnormalities in the chest. Electronically Signed: Wallace Genao MD at 16:37 EDT , Knee X-Ray 08/12/23 15:18 IMPRESSION: No acute radiographic abnormalities. Status post total knee arthroplasty. No evidence of hardware failure or loosening. Electronically Signed: Wallace Genao MD at 16:33 EDT , Management Discussion w/another healthcare provider: Building Appraiser (Trauma) Critical Care Time Critical Care Time: Yes Critical care time (excluding procedures): 30-74 minutes (31), Discussing w/Patient &/or Family/Enlisted Aircrew/Aerial Observer/Gunner, Discussing w/Consultants, Arranging Admission or Transfer and Performing Direct Patient Care at Bedside Discharge Plan Triage Chief Complaint: Fall ED Provider: Norman Mariee Dx/Rx/DC Orders Clinical Impression: Contusion of sternum, Acute subdural hematoma, Fall, Contusion of knee, left Prescriptions: No Action metoprolol tartrate 50 MG tablet 50 mg PO QHS triamterene-hydrochlorothiazid 1 EACH tablet 1 tab PO DAILY Patient Comments: lovastatin 20 MG tablet 20 mg PO QHS Patient Comments: famotidine [Acid Controller] 20 mg tablet 20 mg PO BID levothyroxine 175 mcg tablet 175 mcg PO DAILY albuterol sulfate 90 mcg/actuation HFA aerosol inhaler 1 - 2 puff INHALATION Q4H PRN PRN (Reason: shortness of breath or wheezing) fluticasone propion-salmeterol [Advair HFA] inhalation Primary Care Provider: Cristopher Herring Referrals: Cristopher Herring MD [Primary Care Provider] - Disposition Disposition: Acute Care Hospital
[2023-08-12] MEDS: Ibuprofen 600 MG Tablet PO (15:28)
--- NOTE | 2023-08-12 16:39 | EKG12_ITS ---
Test Reason : FALL Blood Pressure : / mmHG Vent. Rate : 090 BPM Atrial Rate : 090 BPM P-R Int : 138 ms QRS Dur : 094 ms QT Int : 392 ms P-R-T Axes : 079 -59 070 degrees QTc Int : 479 ms Normal sinus rhythm Left anterior fascicular block Abnormal ECG Confirmed by HECTOR HARDWICK, JULIEN ([id number]), newspaper editor ASIM DOMINGUEZ ([id number]) on 08/13/2023 11:32:31 AM Referred By: Confirmed By:JULIEN YOUNG MD
[2023-08-12 17:09] LABS: Absolute Lymphocyte Count 1.45 X10^3/uL (0.83-4.51); Absolute Neutrophil Count 6.4 X10^3/uL (2.0-7.7); Basophil# 0.06 X10^3/uL; Basophil% 0.7 % (0-1); Eosinophil# 0.12 X10^3/uL; Eosinophils% 1.4 % (0-5); Hematocrit 44.3 % (37-47); Hemoglobin 14.4 g/dL (12.0-15.0); Lymphocyte # 1.45 X10^3/ul (0.83-4.51); Lymphocyte % 16.8 % (19-41); Mean Corp Hgb Conc 32.5 g/dL (32-36); Mean Corpuscular Hgb 29.8 pg (27.0-32.0); Mean Corpuscular Volume 91.7 fL (81-99); Mean Platelet Vol. 9.8 fl (6.2-12.0); Monocyte# 0.61 X10^3/uL; Monocyte% 7.1 % (0-10); NRBC Flagged by Analyzer 0 % (0-5); Neutrophil # 6.37 X10^3/uL (2.7-7.7); Neutrophil % 73.7 % (47-70); Platelet Count 291 K/mm3 (150-450); RBC Distribution Width CV 12.8 % (11.6-14.6); RBC Distribution Width SD 42.7 fl (35.1-43.9); Red Blood Count 4.83 M/mm3 (4.2-5.4); White Blood Count 8.6 K/mm3 (4.4-11.0)
[2023-08-12] MEDS: Labetalol (Prefilled) 20 MG/4 ML IV (17:09)
[2023-08-12 17:13] LABS: Partial Thromboplast Time 23.4 Seconds (24.1-36.2); Prothrombin Time (Protime)PT. 12.6 SECONDS (11.7-14.9)
[2023-08-12 17:26] LABS: ALB/GLOB Ratio 0.9 RATIO (0.9-2.4); AST(SGOT) 17 U/L (15-37); Alanine Aminotransfer ALT/SGPT 28 U/L (13-56); Albumin, Serum 3.7 g/dL (3.2-5.0); Alkaline Phosphatase 78 U/L (45-117); Anion Gap 5 (5-15); BUN 15 mg/dL (7-18); BUN/Creat Ratio 19.9 RATIO (10-20); Chloride 105 mmol/L (98-107); Creatinine, Serum 0.75 mg/dL (0.55-1.02); EST Glomerular Filtration Rate 82 mL/min (>60); Est Glom Filt Rate - Afr Amer 99 mL/min (>60); Estimated Creatinine Clearance 93.81 ml/min; Globulin 4.1 g/dL (2.2-4.2); Glucose 97 mg/dL (74-106); Potassium 3.5 mmol/L (3.5-5.1); Protein, Total 7.8 g/dL (6.4-8.2); Sodium Level 139 mmol/L (136-145)
== END 2023-08-12 21:26 | disposition short-term general hospital (02) ==
PROVIDERS: Emergency Provider Emergency Medicine; PCP Family Medicine; Visit Provider Emergency Medicine
DX: S20.219A Contusion of unspecified front wall of thorax, initial encounter (principal); S06.5XAA Traumatic subdural hemorrhage with loss of consciousness status unknown, initial encounter; S80.02XA Contusion of left knee, initial encounter; Z79.51 Long term (current) use of inhaled steroids; Z79.899 Other long term (current) drug therapy; W19.XXXA Unspecified fall, initial encounter
CPT/HCPCS: 70450; 71250; 72125; 73564; 80053; 80320; 85025; 85610; 85730; 93005; 96374; 99284; A4216; G0480

== ENCOUNTER → 2023-11-23 | Outpatient (CLI) | payer MEDICARE, BC, SELFPAY ==
--- NOTE | 2023-11-23 11:55 | EKG12_ITS ---
Test Reason : PREOP Blood Pressure : / mmHG Vent. Rate : 054 BPM Atrial Rate : 054 BPM P-R Int : 130 ms QRS Dur : 098 ms QT Int : 472 ms P-R-T Axes : 029 -29 028 degrees QTc Int : 447 ms Sinus bradycardia Low voltage QRS Borderline ECG Confirmed by HECTOR HARDWICK, JULIEN ([id number]), medical editor JOSE A REDDY ([id number]) on 11/24/2023 11:27:42 AM Referred By: Jaylan Orr Confirmed By:JULIEN YOUNG MD
[2023-11-23 13:02] LABS: Hematocrit 44.1 % (37-47); Hemoglobin 14.1 g/dL (12.0-15.0); Mean Corpuscular Hgb 29.9 pg (27.0-32.0); Mean Corpuscular Volume 93.6 fL (81-99); Mean Platelet Vol. 10.2 fl (6.2-12.0); Platelet Count 292 K/mm3 (150-450); RBC Distribution Width CV 12.4 % (11.6-14.6); Red Blood Count 4.71 M/mm3 (4.2-5.4); White Blood Count 5.2 K/mm3 (4.4-11.0)
[2023-11-23 13:15] LABS: Anion Gap 4 (5-15); BUN 18 mg/dL (7-18); BUN/Creat Ratio 23.9 RATIO (10-20); Calcium,Total 9.7 mg/dL (8.5-10.1); Chloride 103 mmol/L (98-107); Creatinine, Serum 0.75 mg/dL (0.55-1.02); EST Glomerular Filtration Rate 82 mL/min (>60); Est Glom Filt Rate - Afr Amer 99 mL/min (>60); Glucose 86 mg/dL (74-106); Potassium 3.7 mmol/L (3.5-5.1); Sodium Level 137 mmol/L (136-145)
== END | disposition home or self-care (01) ==
LOC: PSN 11:54
PROVIDERS: PCP Family Medicine; Referring Provider Otolaryngology; Visit Provider Otolaryngology
DX: Z01.810 Encounter for preprocedural cardiovascular examination (principal)
CPT/HCPCS: 36415; 80048; 85027; 93005

== ENCOUNTER → 2024-01-06 | Outpatient (CLI) | payer MEDICARE, BC, SELFPAY ==
[2024-01-06 10:40] LABS: Cholesterol 162 mg/dL (200); Free T3 2.8 pg/mL (2.18-3.98); High Density Lipoprotein 43 mg/dL; T4 Free Direct 1.14 ng/dL (0.76-1.46); Thyroid Stim Hormone (TSH) 0.918 uIU/mL (0.358-3.740); Triglycerides 165 mg/dL; Very Low Density Lipoprotein 33 mg/dL (5-40)
== END | disposition home or self-care (01) ==
LOC: MFPLAB 08:56
PROVIDERS: PCP Family Medicine; Visit Provider Family Medicine
DX: I10 Essential (primary) hypertension (principal); E03.9 Hypothyroidism, unspecified
CPT/HCPCS: 36415; 80061; 84439; 84443; 84481

== ENCOUNTER → 2024-03-21 | Outpatient (CLI) | payer MEDICARE, BC, SELFPAY ==
--- NOTE | 2024-03-21 14:41 | BI_ITS ---
MAMMOGRAPHY - BILATERAL SCREENING REASON FOR EXAM: Female, 69 years old. Routine annual screening examination. PERTINENT HISTORY: Non-contributory. History of right breast aspiration and biopsy. TECHNIQUE: Digital bilateral breast john (3D mammographic acquisition) in the CC and MLO projections. 2-D mediolateral oblique (MLO) and craniocaudad (CC) views of both breasts were obtained. CAD: Full Field Digital Mammography with Computer Added Detection was performed. COMPARISON: Comparison is made with prior study dated February 12, 2023 and February 10, 2022. FINDINGS: Breast Composition: There are scattered areas of fibroglandular density. There are no dominant masses or suspicious calcifications. No other significant abnormalities are identified. There has been no significant change since the prior study. BI/SCREENING MAMM (CAD), BILAT IMPRESSION: Stable bilateral screening mammogram. Yearly follow-up mammogram recommended. (A) ASSESSMENT CATEGORY: BIRADS Category 1: Negative. A letter regarding these results will be sent to the patient by the facility within 30 days. Approximately 10% of breast cancers are not detected by mammography. A normal mammogram should not delay biopsy of a clinically suspicious abnormality. [id number] Electronically Signed: Edward Gonsales MD at 8:38 EST ,
== END | disposition home or self-care (01) ==
LOC: OPBI 14:40
PROVIDERS: PCP Family Medicine; Referring Provider Nurse Practitioner Family; Visit Provider Nurse Practitioner Family
DX: Z12.31 Encounter for screening mammogram for malignant neoplasm of breast (principal)
CPT/HCPCS: 77067

== ENCOUNTER → 2024-07-06 | Outpatient (CLI) | payer MEDICARE, BC, SELFPAY ==
[2024-07-06 11:28] LABS: ALB/GLOB Ratio 1.4 RATIO (0.9-2.4); AST(SGOT) 17 U/L (<=31); Alanine Aminotransfer ALT/SGPT 16 U/L (<=34); Albumin, Serum 4.1 g/dL (3.4-4.8); Alkaline Phosphatase 92 U/L (35-104); Anion Gap 11 (5-15); BUN 21 mg/dL (4-19); BUN/Creat Ratio 29.6 RATIO (10-20); Calcium,Total 9.9 mg/dL (7.6-11.0); Carbon Dioxide 27.4 mmol/L (21.0-32.0); Chloride 104 mmol/L (98-108); Cholesterol 174 mg/dL (<=200); Creatinine, Serum 0.71 mg/dL (0.70-1.20); EST Glomerular Filtration Rate 93 (>60); Free T3 3.3 pg/mL (2.18-3.98); Glucose 88 mg/dL (70-99); High Density Lipoprotein 46 mg/dL; Low Density Lipoprotein Calc. 88 mg/dL; Potassium 3.9 mmol/L (3.3-5.1); Protein, Total 7.1 g/dL (5.9-8.4); Sodium Level 142 mmol/L (133-145); Thyroid Stim Hormone (TSH) 0.508 uIU/mL (0.300-4.200); Total Bilirubin 0.32 mg/dL (0.00-1.30); Triglycerides 198 mg/dL; Very Low Density Lipoprotein 40 mg/dL (5-40); cholesterol:hdl ratio screen 3.76
== END | disposition home or self-care (01) ==
LOC: MFPLAB 08:24
PROVIDERS: PCP Family Medicine; Referring Provider Family Medicine; Visit Provider Family Medicine
DX: I10 Essential (primary) hypertension (principal); E03.9 Hypothyroidism, unspecified
CPT/HCPCS: 36415; 80053; 80061; 84439; 84443; 84481

== ENCOUNTER → 2024-08-30 | Outpatient (CLI) | payer MEDICARE, BC, SELFPAY ==
[2024-08-30 19:00] LABS: Anion Gap 14 (5-15); BUN 19 mg/dL (4-19); BUN/Creat Ratio 21.1 RATIO (10-20); Calcium,Total 10.3 mg/dL (7.6-11.0); Chloride 99 mmol/L (98-108); Creatinine, Serum 0.89 mg/dL (0.70-1.20); EST Glomerular Filtration Rate 71 (>60); Glucose 93 mg/dL (70-99); Potassium 3.4 mmol/L (3.3-5.1); Sodium Level 140 mmol/L (133-145)
== END | disposition home or self-care (01) ==
LOC: MTLAB 13:45
PROVIDERS: PCP Family Medicine; Referring Provider Family Medicine; Visit Provider Family Medicine
DX: E87.6 Hypokalemia (principal)
CPT/HCPCS: 36415; 80048

== ENCOUNTER 2024-10-18 08:00 | Outpatient (RCR) | payer MEDICARE, BC, SELFPAY ==
--- NOTE | 2024-08-16 12:23 | HP.PTEVAL_ITS ---
Patient's Visit Information Visit Information Visit Information: THOR STRONG is a 69 year old F referred to Physical Therapy by Dr. Edouard Vazquez MD with a diagnosis of R shoulder OA. Date of Evaluation: 08/16/24 Physical Therapist: Lefty Simpson DPT Visit Plan Frequency: 2x /Week Duration: 6 Weeks Plan: 1) US, IASTIM to R biceps tendon 2) biceps loading, RTC strengthening. Subjective Subjective: Pt. is here today for her initial evaluation of R shoulder OA. Pt. reports having increased for ~6 weeks. Her pain comes and goes. She was doing some aquatic exercises and felt some pain, but then was lifting a plate of food out in front of her that really bothered her. She is sleeping okay, but does have some increased pain if she rolls onto her R shoulder. No N/T. Pt. had xray- OA noted. Pt. reports feeling catching with OH movements. 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 Pt. did get an injection last week and has had some relief with this. Pt. reports increased ryan with carrying or lifting. Pain R shoulder: Pain Intensity (Out of 10): 1 Pain Intensity Range: 0 and 6 Objective Objective: POSTURE: Pt. has slight FH posture. slight forward shoulders PALPATION: P.t has tenderness at anterior shoulder and biceps tendon, NEURO: normal of BUEs. ROM: AROM: R shoulder- flexion 165deg, abd 170deg, functional ER T2, functional IR L1. PROM: flexion 17deg, abd 175deg, ER at 90deg of abd 100deg, IR at 9d0eg of abd 50deg. No pain with all testing. MMT: R shoulder: ER 16.4#, IR 18.2,, flex 15.6#, abd 21.7# L shoulder: ER 16.2#, IR 21.7#, flex 14.8#, abd 20.4# Special Tests R Shoulder Drop Sign - IS Test: Negative R Shoulder Empty Can - SS: Negative R Shoulder Belly Press - SupScap: Negative R Shoulder Neer - Impingement: Positive R Shoulder Edmondson Cristofer - Impingement: Positive R Shoulder Speeds Test - Labrum/Biceps: Positive Balance/Special Test Scores Quick DASH Score: 25.0000 Goals Goal 1:: LTG: Pt. to be I with HEP. Goal Time Frame: 4-6 Weeks Goal 2:: LTG: Pt. to have full motions of R shoulder without increase in symptoms. Goal Time Frame: 4-6 Weeks Goal 3:: LTG: Pt. to have no pain with resisted R shoulder flexion. Goal Time Frame: 4-6 Weeks Goal 4:: LTG: Pt. to complete all aquatic exercises and daily activities without increase in symptoms. Goal Time Frame: 4-6 Weeks Rehabilitation Potential Physical Therapy Diagnosis: Pt. has signs and symptoms consistent with R shoulder OA. Pt. has marked pain with stress to biceps tendon as well as weakness while doing so. Pt. would benefit from PT to work on remodeling her tissue and strengthening to reduce stress to the above mentioned tendon. Rehabilitation Potential: Excellent Anticipated Interventions Patient/Client Instruction: Educate patient on: Condition, Plan of Care, Risk Factors and Benefits of Fitness Program For the Purpose of:: To facilitate caregiver knowledge, To improve self management, To prevent re-injury, To improve ability to perform tasks related to life management and To improve tolerance to ADL's Therapeutic Exercise to Include: Strength training, Power training, Postural training, Flexibilty training, Passive ROM, Active ROM and Scapular Strength/S tabilization For the Purpose of:: To decrease pain, To increase ROM, To improve nutrient delivery to tissue, To increase oxygenation perfusion, To improve muscle performance and motor function and To improve ability to perform ADL's Manual Therapy Techniques to Include: Mobilization Comment: IASTIM For the Purpose of:: To decrease pain, To decrease soft tissue restriction and To increase flexibility/ROM Ultrasound (thermal/non thermal): Yes For the Purpose of:: To decrease pain and To decrease swelling/inflammation Text: Thank you for the opportunity to evaluate your patient. For Medicare and Medicare HMO plans, please review the plan of care and approve it. It will need to be FAXED BACK to us at [phone] for Medicare purposes. For Medicare only, by signing this I certify the plan of care. Please let me know if there are questions or concerns regarding this plan of care. Physician Signature: Date:
--- NOTE | 2024-10-18 08:29 | HP.PTDCSUM ---
Discharge Summary D/C summary: It has been my pleasure to treat THOR STRONG referred by Dr. Edouard Vazquez MD, with the diagnosis of R shoulder OA for a total of 12 visit(s). Discharge Date: 10/18/24 Please see the following information for a summary of their discharge status. Subjective Subjective: Pt. reports overall doing much better. She reports being back to doing all of her exercises without issues. She is also able to do all of her ADLs without limitations. She is having some L shoulder pain, but is going to try and do some the same exercises for that shoulder to see if it helps. Pain R shoulder: Pain Intensity (Out of 10): 0 Overall Improvement % Improvement: 85 Objective Objective/Function: ROM: Full ROM without increase in symptoms. MMT: Pt. has more strength of the R shoulder compared to L today. L is sore especially with flexion and ER motions. NO pain with R shoulder. Full strength Pt. is overall doing well. NO major issues with her R shoulder at this point in time. I want her to continue with strengthening and initiate some of the L shoulder exercises. If not doing well she will follow up with physician for her L shoulder. Pt. consents Goals Goal 1:: LTG: Pt. to be I with HEP. Goal Progress: Goal Met Goal 2:: LTG: Pt. to have full motions of R shoulder without increase in symptoms. Goal Progress: Goal Met Goal 3:: LTG: Pt. to have no pain with resisted R shoulder flexion. Goal Progress: Goal Met Goal 4:: LTG: Pt. to complete all aquatic exercises and daily activities without increase in symptoms. Goal Progress: Goal Met Plan Plan: Pt. to be DC from PT today. D/C Information d/c sentence: If there are questions or concerns regarding this patient's physical therapy, please feel free to call me at [phone]. Thank you for the referral of this patient. Sincerely, Lefty Everett Sipos, DPT Balance/Gait/Functional tests Balance/Special Test Scores Quick DASH Score: 0 Improvement % Improvement: 85
== END 2024-10-18 19:00 | disposition home or self-care (01) ==
LOC: PT 08:00
PROVIDERS: PCP Family Medicine; Referring Provider Specialist; Visit Provider Specialist
DX: M19.011 Primary osteoarthritis, right shoulder (principal); M25.511 Pain in right shoulder
CPT/HCPCS: 97035; 97110; 97161; 97530

== ENCOUNTER → 2024-10-18 | Outpatient (CLI) | payer MEDICARE, BC, SELFPAY ==
[2024-10-18 10:57] LABS: T3 Total - Triiodothyronine 1.18 ng/mL (0.80-2.00)
== END | disposition home or self-care (01) ==
LOC: MTLAB 08:42
PROVIDERS: PCP Family Medicine; Referring Provider Family Medicine; Visit Provider Family Medicine
DX: E03.9 Hypothyroidism, unspecified (principal)
CPT/HCPCS: 36415; 84439; 84443; 84480

== ENCOUNTER → 2025-01-19 | Outpatient (CLI) | payer MEDICARE, BC, SELFPAY ==
[2025-01-19 10:11] LABS: Hematocrit 39.7 % (37-47); Hemoglobin 13.0 g/dL (12.0-15.0); Immature Granulocytes Count 0.010 X10^3/uL (0.0-0.0); Mean Corp Hgb Conc 32.7 g/dL (32-36); Mean Corpuscular Volume 92.3 fL (81-99); Mean Platelet Vol. 10.3 fl (6.2-12.0); NRBC Flagged by Analyzer 0 % (0-5); Platelet Count 278 K/mm3 (150-450); RBC Distribution Width CV 12.7 % (11.6-14.6); RBC Distribution Width SD 43.2 fl (35.1-43.9); Red Blood Count 4.30 M/mm3 (4.2-5.4); White Blood Count 4.7 K/mm3 (4.4-11.0)
[2025-01-19 10:56] LABS: Anion Gap 9 (5-15); BUN 15 mg/dL (4-19); BUN/Creat Ratio 20.8 RATIO (10-20); Calcium,Total 9.9 mg/dL (7.6-11.0); Carbon Dioxide 30.0 mmol/L (21.0-32.0); Chloride 102 mmol/L (98-108); Cholesterol 177 mg/dL (<=200); Free T3 3.0 pg/mL (2.18-3.98); Glucose 88 mg/dL (70-99); Low Density Lipoprotein Calc. 90 mg/dL; Potassium 3.8 mmol/L (3.3-5.1); Triglycerides 193 mg/dL; Very Low Density Lipoprotein 39 mg/dL (5-40); cholesterol:hdl ratio screen 3.62
== END | disposition home or self-care (01) ==
LOC: MFPLAB 08:58
PROVIDERS: PCP Family Medicine; Visit Provider Family Medicine
DX: Z01.818 Encounter for other preprocedural examination (principal); I10 Essential (primary) hypertension; E03.9 Hypothyroidism, unspecified
CPT/HCPCS: 36415; 80048; 80061; 84439; 84443; 84481; 85025

== ENCOUNTER → 2025-03-23 | Outpatient (CLI) | payer MEDICARE, BC, SELFPAY ==
--- NOTE | 2025-03-23 08:44 | BI_ITS ---
EXAM: SCRN MAMM (CAD)W/PHUC BILAT DATE: 03/23/2025 CLINICAL HISTORY: F, Age 70 y/o , SCREENING No family history. Prior right breast aspiration. TECHNIQUE: Procedure Code: [id number] Modality: MG Procedure: SCRN MAMM (CAD)W/PHUC BILAT COMPARISON: Prior exam(s) dated March 21, 2024.. FINDINGS: TISSUE DENSITY: There are scattered areas of fibroglandular density. Bilateral Breast Mammographic Findings: No significant masses, calcifications or other abnormalities are identified. No suspicious masses, areas of developing architectural distortion, or suspicious calcifications. There has been no significant interval change. BI/SCRN MAMM (CAD)W/PHUC BILAT IMPRESSION: Stable bilateral screening mammogram. OVERALL FINAL ASSESSMENT BI-RADS 1: NEGATIVE. RECOMMENDATION: Routine annual follow-up in 1 Year Additional Recommendation none A letter with findings and recommendations will be mailed to the patient. Reading Location: [place] [address]
== END | disposition home or self-care (01) ==
LOC: OPBI 08:44
PROVIDERS: PCP Family Medicine; Referring Provider Family Medicine; Visit Provider Family Medicine
DX: Z12.31 Encounter for screening mammogram for malignant neoplasm of breast (principal)
CPT/HCPCS: 77063; 77067

== ENCOUNTER 2025-04-10 09:42 | Day surgery (SDC) | payer MEDICARE, BC, SELFPAY ==
--- NOTE | 2025-03-21 13:06 | EKG12_ITS ---
Test Reason : PREOP Blood Pressure : */* mmHG Vent. Rate : 79 BPM Atrial Rate : 79 BPM P-R Int : 138 ms QRS Dur : 100 ms QT Int : 402 ms P-R-T Axes : 68 -51 34 degrees QTcB Int : 460 ms Normal sinus rhythm Left axis deviation Low voltage QRS Possible Anterolateral infarct and inferior , age undetermined Poor R-wave progression Abnormal ECG Confirmed by Nando Diane ([id number]), market editor JONATHAN ASHTON ([id number]) on 03/22/2025 1:05:17 PM Referred By: Clayton Charles Confirmed By: Nando Diane
[2025-03-21 13:36] LABS: Hematocrit 40.4 % (37-47); Hemoglobin 13.0 g/dL (12.0-15.0); Immature Granulocytes Count 0.020 X10^3/uL (0.0-0.0); Mean Corp Hgb Conc 32.2 g/dL (32-36); Mean Corpuscular Volume 92.9 fL (81-99); Mean Platelet Vol. 9.8 fl (6.2-12.0); NRBC Flagged by Analyzer 0 % (0-5); Platelet Count 311 K/mm3 (150-450); RBC Distribution Width CV 13.2 % (11.6-14.6); RBC Distribution Width SD 45.1 fl (35.1-43.9); Red Blood Count 4.35 M/mm3 (4.2-5.4); White Blood Count 6.0 K/mm3 (4.4-11.0)
[2025-03-21 14:07] LABS: Anion Gap 9 (5-15); BUN 20 mg/dL (4-19); BUN/Creat Ratio 26.4 RATIO (10-20); Calcium,Total 10.0 mg/dL (7.6-11.0); Carbon Dioxide 29.4 mmol/L (21.0-32.0); Chloride 101 mmol/L (98-108); Glucose 120 mg/dL (70-99); Potassium 3.5 mmol/L (3.3-5.1)
--- NOTE | 2025-03-21 16:40 | PAT.ANESEVAL ---
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 When Was Last Pacemaker Check QUESTION #4 FULL TEXT: You/Your Family Experience fever (hyperthermia) with Anesthesia Last Oral Intake Last Oral intake: Last Oral Intake NPO since Meds taken in AM with sips of water? Meds patient instructed to take am of surgery PONV PONV - retail sales manager: PONV - retail sales manager Female Yes 03/16/25 08:25 HX of Motion Sickness No 03/16/25 08:25 HX of N/V After Surgery No 03/16/25 08:25 Non-Smoker Yes 03/16/25 08:25 Duration of Surgery greater Yes 03/16/25 08:25 than 60 minutes Number of Risk Factors 3 03/16/25 08:25 PONV Score Moderate Risk 03/16/25 08:25 Height & Weight Height & Weight: Anesthesia: Height & Weight Height 5 ft 6.25 in 08/12/23 12:35 Respiratory Assessment Respiratory Assessment - retail sales manager: Respiratory Tract Infection Hx - retail sales manager Hx Respiratory Tract Infection No 03/16/25 08:25 STOP Sleep Apnea STOP Sleep Apnea - retail sales manager: STOP Sleep Apnea - retail sales manager Hx Hypertension Yes: PER PT, CONTROLLED ON 03/16/25 08:25 MEDS Hx Sleep Apnea No 03/16/25 08:25 CPAP BIPAP Do you snore loudly (louder No 03/16/25 08:25 than talking or can be heard Do you often feel tired/ No 03/16/25 08:25 fatigued/ sleepy during daytime? Has anyone observed you stop No 03/16/25 08:25 breathing during sleep? STOP Results Negative 03/16/25 08:25 QUESTION #5 FULL TEXT : Do you snore loudly (louder than talking or can be heard through closed doors)? Tobacco Use History Tobacco Use History - retail sales manager: Tobacco Use History - retail sales manager Tobacco Use Smoking Status Never smoker 03/16/25 08:25 Hx Tobacco Use No 03/16/25 08:25 Years Smoking Packs Smoked per Day Smoking Cessation Date was within the last 15 years Hx Smoking Cessation Date Hx Smoking Cessation Counseling Hematologic Medial History Hematologic Hx - retail sales manager: Hematologic Medical Hx - ob gyn Hx of Blood Transfusion No 03/16/25 08:25 Hx of Transfusion in last 3 No 03/16/25 08:25 Months Date of Last Transfusion (if within last 3 months) Ever experience any problems No 03/16/25 08:25 with transfusion(s)? Specify any problems Hx of Preganancy in last 3 No 03/16/25 08:25 Months Nurse Filling Out Transfusion MGRIFFITH 03/16/25 08:25 & Questions: Date: 03/16/25 03/16/25 08:25 Time: 08:28 03/16/25 08:25 Patient unable to answer at this time (ie. confused, unrespo /Reproduction History /Reproductive History - retail sales manager: /Reproductive Hx- retail sales manager Hx Now No 03/16/25 08:25 Gestational Age (in weeks): EDC: Hx Hx Para Hx Section SAB No 03/16/25 08:25 Does the father of the baby or his family experience fever w Father of the baby Malignant Hypertension history comment [facility] Medical History (Updated 03/16/25 @ 08:37 by Alejandra Puente) Wears glasses Cancer History of steroid therapy High cholesterol History of DVT (deep vein thrombosis) Injury of head and neck Gastric reflux Asthma Non-smoker Leg cramps History of echocardiogram History of stress test Hypertension Home Medications ?Medication ?Instructions ?Recorded ?Last Taken ?Type lovastatin 20 mg tablet 20 mg PO QHS 09/20/16 Unknown History metoprolol tartrate 50 mg tablet 50 mg PO QHS 09/20/16 Unknown History triamterene 37.5 1 tab PO DAILY 09/20/16 Unknown History mg-hydrochlorothiazide 25 mg tablet albuterol sulfate 90 mcg/actuation 1 - 2 puff inhalation Q4H PRN PRN 08/12/23 Unknown History aerosol inhaler shortness of breath or wheezing famotidine 20 mg tablet (Acid 20 mg PO BID 08/12/23 Unknown History Controller) levothyroxine 175 mcg tablet 175 mcg PO DAILY 08/12/23 Unknown History lisinopril 10 mg tablet 10 mg PO DAILY 03/16/25 Unknown History omeprazole 20 mg capsule,delayed 20 mg PO QHS 03/16/25 Unknown History release Allergy/AdvReac Type Severity Reaction Status Date / Time apixaban (From Eliquis) Allergy Severe Hives Verified 03/16/25 08:17 adhesive AdvReac Other Verified 03/16/25 08:17 erythromycin base AdvReac Upset Verified 03/16/25 08:17 Stomach hydrocodone (From Vicodin) AdvReac Other Verified 03/16/25 08:17 Surgical History (Updated 03/16/25 @ 08:25 by Alejandra Puente) History of surgery History of total left knee replacement (TKR) History of total right knee replacement (TKR) History of thyroidectomy History of carpal tunnel release of both wrists History of tubal ligation History of tonsillectomy History of hysterectomy History of cholecystectomy History of appendectomy Social History Smoking Status: Never smoker Audit: Pertinent Findings Pertinent Findings EKG Perinent findings: EKG 11/23/2023. Sinus bradycardia. Low voltage QRS. Recommendation Anesthesia Recommendation Anesthesia recommendation: OPTIMIZED for anesthesia
[2025-04-10] VITALS (11 sets, daily range): BP systolic 111–147; BP diastolic 49–74; PULSE 76–84; RESP 16–18; TEMP 36.1–36.2; O2SAT 92–99; BMI 44.4
[2025-04-10] MEDS: Lactated Ringers 1,000 ML 15 ML IV (10:13)
--- NOTE | 2025-04-10 10:30 | PRE.ANES_ITS ---
ASA Classification* ASA Classification ASA Classification: 2 Assessment & Plan Anesthesia* Anesthesia Assessment Anesthesia Assessment: Discussed sedation and/or anesthesia options, risks, benefits, and alternatives with patient/parents/legal guardian/POA. Questions invited. The patient/parents/legal guardian/POA seems to understand and agrees to proceed with anesthesia plan. Reviewed the physical assessment, medical history, allergy history and patient home medications list prior to surgery/procedure/anesthetic and documented any changes. Performed airway and anesthesia risk assessments. Anesthesia Type Anesthesia Type: General and Block History Source History Obtained from:: Patient and Chart Anesthesia Focused Assessment* Temperature: 97.2 F Pulse Rate: 76 Blood Pressure: 147/73 Respiratory Rate: 18 Pulse Ox: 99 Oxygen Delivery Method: Room Air Airway Assessment Mouth opens: >3 cm Mallampati Score: II Teeth Condition: Intact Neck Range of motion (ROM): Full ROM Labs Anesthesia Preop lab: CBC WBC, (4.4-11.0) 6.0 K/mm3 03/21/25, 13:07 RBC, (4.2-5.4) 4.35 M/mm3 03/21/25, 13:07 Hgb, (12.0-15.0) 13.0 g/dL 03/21/25, 13:07 Hct, (37-47) 40.4 % 03/21/25, 13:07 Plt Count, (150-450) 311 K/mm3 03/21/25, 13:07 CHEMISTRY Potassium, (3.3-5.1) 3.5 mmol/L 03/21/25, 13:07 Sodium, (133-145) 139 mmol/L 03/21/25, 13:07 Magnesium, (1.6-2.6) 2.5 mg/dL 08/02/20, 09:52 BUN, (4-19) 20 mg/dL H 03/21/25, 13:07 Creatinine, (0.70-1.20) 0.74 mg/dL 03/21/25, 13:07 Glucose, (70-99) 120 mg/dL H 03/21/25, 13:07 TSH, (0.300-4.200) 2.290 uIU/mL 01/19/25, 08:58 COAG PT, (11.7-14.9) 12.6 SECONDS 08/12/23, 16:57 Pre-Assessment Diagnosis/Proposed Procedure Planned Operative Procedure(s): (R) RIGHT SHOULDER ARTHROSCOPIC ROTATOR CUFF REPAIR Anesthesia History 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 When Was Last Pacemaker Check QUESTION #4 FULL TEXT: You/Your Family Experience fever (hyperthermia) with Anesthesia Last Oral Intake Last Oral intake: Last Oral Intake NPO since 00:00 04/10/25 10:01 Meds taken in AM with sips of Yes 04/10/25 10:01 water? Meds patient instructed to take am of surgery PONV PONV - printed circuit board panels deburrer: PONV - printed circuit board panels deburrer Female Yes 03/16/25 08:25 HX of Motion Sickness No 03/16/25 08:25 HX of N/V After Surgery No 03/16/25 08:25 Non-Smoker Yes 03/16/25 08:25 Duration of Surgery greater Yes 03/16/25 08:25 than 60 minutes Number of Risk Factors 3 03/16/25 08:25 PONV Score Moderate Risk 03/16/25 08:25 Height & Weight Height & Weight: Anesthesia: Height & Weight Height 5 ft 6.25 in 04/10/25 10:01 Weight: 126 kg 04/10/25 10:01 Body Mass Index (BMI) 44.4 04/10/25 10:01 Respiratory Assessment Respiratory Assessment - printed circuit board panels deburrer: Respiratory Tract Infection Hx - printed circuit board panels deburrer Hx Respiratory Tract Infection No 03/16/25 08:25 STOP Sleep Apnea STOP Sleep Apnea - printed circuit board panels deburrer: STOP Sleep Apnea - printed circuit board panels deburrer Hx Hypertension Yes: PER PT, CONTROLLED ON 03/16/25 08:25 MEDS Hx Sleep Apnea No 03/16/25 08:25 CPAP BIPAP Do you snore loudly (louder No 03/16/25 08:25 than talking or can be heard Do you often feel tired/ No 03/16/25 08:25 fatigued/ sleepy during daytime? Has anyone observed you stop No 03/16/25 08:25 breathing during sleep? STOP Results Negative 03/16/25 08:25 QUESTION #5 FULL TEXT : Do you snore loudly (louder than talking or can be heard through closed doors)? 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 Specify any problems Hx of Preganancy in last 3 No 03/16/25 08:25 Months Nurse Filling Out Transfusion MGRIFFITH 03/16/25 08:25 & Questions: Date: 03/16/25 03/16/25 08:25 Time: 08:28 03/16/25 08:25 Patient unable to answer at this time (ie. confused, unrespo /Reproduction History /Reproductive History - printed circuit board panels deburrer: /Reproductive Hx- printed circuit board panels deburrer Hx Now No 03/16/25 08:25 Gestational Age (in weeks): EDC: Hx Hx Para Hx Section SAB No 03/16/25 08:25 Does the father of the baby or his family experience fever w Father of the baby Malignant Hypertension history comment Active Medications Active Medications: Current Medications Generic Name Dose Route Start Last Admin Trade Name Freq PRN Reason Stop Dose Admin Lactated Ringer's 1,000 mls @ 15 mls/hr 04/10/25 09:45 04/10/25 10:13 IV 15 mls/hr .Q48H YULIA Administration PFSH Medical History Wears glasses Cancer History of steroid therapy High cholesterol History of DVT (deep vein thrombosis) Injury of head and neck Gastric reflux Asthma Non-smoker Leg cramps History of echocardiogram History of stress test Hypertension Home Medications ?Medication ?Instructions ?Recorded ?Last Taken ?Type lovastatin 20 mg tablet 20 mg PO QHS 09/20/16 History metoprolol tartrate 50 mg tablet 50 mg PO QHS 09/20/16 04/09/25 History triamterene 37.5 1 tab PO DAILY 09/20/1603/14 History mg-hydrochlorothiazide 25 mg tablet albuterol sulfate 90 mcg/actuation 1 - 2 puff inhalati on Q4H PRN PRN 08/12/23 04/09/25 History aerosol inhaler shortness of breath or wheez ing famotidine 20 mg tablet (Acid 20 mg PO BID 08/12/23 History Controller) levothyroxine 175 mcg tablet 175 mcg PO DAILY 08/12/23 04/10/25 History lisinopril 10 mg tablet 10 mg PO DAILY 03/16/2503/14 History omeprazole 20 mg capsule,delayed 20 mg PO QHS 03/16/25 04/09/25 History release Allergy/AdvReac Type Severity Reaction Status Date / Time apixaban (From Eliquis) Allergy Severe Hives Verified 04/10/25 09:59 adhesive AdvReac Other Verified 04/10/25 09:59 erythromycin base AdvReac Upset Verified 04/10/25 09:59 Stomach hydrocodone (From Vicodin) AdvReac Other Verified 04/10/25 09:59 Surgical History History of surgery History of total left knee replacement (TKR) History of total right knee replacement (TKR) History of thyroidectomy History of carpal tunnel release of both wrists History of tubal ligation History of tonsillectomy History of hysterectomy History of cholecystectomy History of appendectomy Social History Smoking Status: Never smoker Review of Systems (Anesthesia) ROS Narrative System reviewed and no additional complaints, except as documented.
[2025-04-10] MEDS: Midazolam 2 MG/2 ML Syringe IV (11:01)
[2025-04-10] MEDS: Cefazolin 1 GM/5 ML Vial 3 GM IV (11:12)
[2025-04-10] MEDS: Lidocaine 1% (5 ml sdv) 5 ML Vial 10 ML IV (11:17)
[2025-04-10] MEDS: Epinephrine (1 mg/ml) 1 MG/ML VIAL (11:50)
--- NOTE | 2025-04-10 13:09 | PCM.OPRPT ---
Operative Report (Standard) Operative Information Date of Procedure: 04/10/25 Pre-Operative Diagnosis: Right shoulder rotator cuff tear Post-Operative Diagnosis: Right shoulder rotator cuff tear Surgery/Procedure Performed: Right shoulder arthroscopic rotator cuff repair facing machine operator: Yes Phone Circuit Operator: Telma Mancera Tasks completed by dairy and food laboratory assistant: Opening & closing, Implanting device and Retracting Type of Anesthesia: General/Regional RN Documented Start/Stop Times: Operation Date: 04/10/25 13:45 Case Time Into Pre-Op 04/10/25 09:45 Anesthesia Start 04/10/25 11:12 Into Room 04/10/25 11:12 Procedure Start 04/10/25 11:41 Procedure Start Time: 11:41 Procedure Stop Time: 13:11 Select all DRAINS/GRAFTS/IMPLANTS that apply: Implanted device Implanted device details: Arthrex self punching bio composite swivel lock anchor x 3, fiber tack RC anchor x 3 Estimated Blood Loss: 5 cc Specimen collected: No Description of surgery: Patient was identified in preoperative holding area by name, medical record number, and date of . The operative extremity was marked. All questions were answered to the patient's satisfaction. An interscalene block was administered by anesthesia prior to the procedure. Patient was then brought to the operative suite at time of her procedure. She was positioned supine on a standard operating table. General anesthesia was induced and endotracheal tube was placed. Patient was then placed in lateral decubitus position with the right side up. A beanbag was used to hold the patient in the lateral decubitus position. An axillary roll was placed. Pillows were placed beneath and between his legs to for any bony prominences. We prepped and draped the right upper extremity in normal, sterile orthopedic fashion. The operative extremity was placed in traction utilizing arthroscopic bedroom with 15 pounds of tension applied to the operative extremity throughout the arthroscopic portion of the case, approximately 70 minutes. We performed a timeout with all parties in attendance in agreement with the side, site, and operation be performed. No concerns were voiced and we elected to proceed with surgery. 3 g Ancef was administered IV prior to incision by anesthesia staff. I first established a standard posterior portal 2 fingerbreadths inferior medial to the posterior lateral border of the scapular spine. Blunt tipped trocar and arthroscopic cannula was introduced into the glenohumeral joint. Joint was inflated with normal saline with epinephrine. Arthroscope was then introduced. Diagnostic arthroscopy was commenced. Full-thickness tearing of the supraspinatus was noted. Upper third subscapularis tearing was noted with retraction. Chronic lateral biceps tendon rupture was noted. 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 No loose bodies identified. Anterior interval portal was established. 3 sided subscapularis release was performed with cautery. Tendon mobilized well. A FiberLink suture was placed in the upper third of the tendon with a scorpion suture passer and passed through the eyelet of swivel lock anchor. [place] was placed at the upper border of the lesser tuberosity with excellent purchase and reapproximation of the subscapularis to its footprint. Sutures were cut. The arthroscope was then withdrawn and reentered in the subacromial space. Lateral portal was established. Flexible cannula was placed. Retracted tear of the supraspinatus was noted with involvement of the infraspinatus as well. A traction suture was placed and bursal release was performed. Cuff mobilized well. Footprint was medialized approximately 5 mm with a bur. 3 fiber tack anchors were placed percutaneously at the chondral margin. Sutures were set in standard fashion. I sequentially passed 5 suture pairs through the rotator cuff tissue. 2 of which were sliding sutures which were tied. The conjoined sutures were then divided and a single limb was passed through the eyelet of a swivel lock anchor for lateral row anchors both anterior and posterior. Sutures were tensioned and anchors were placed with excellent purchase along the lateral margin of the greater tuberosity. There were excellent reapproximation of redding cuff tissue to its medialize footprint without dogears. Sutures were cut. Subacromial space was thoroughly lavaged. Instruments were removed. Portal sites closed interrupted [id number] fashion with 3-0 nylon suture. Bulky sterile compression dressing was applied. Patient was placed in UltraSling. She tolerated the procedure well without apparent complication. She was safely awakened from anesthesia and extubated in the operative suite. She was transferred to her gurney and subsequently to PACU in stable condition. Need for skilled certified registered dental assistant: Telma Mancera PA-C was critical to the outcome of the case. During the course of the procedure the physician certified registered dental assistant played a vital role. Her intimate knowledge of my steps in the procedure aided in safe and expedient completion of the procedure. The PA played a vital role in positioning particularly in obtaining the appropriate positioning. The PA was also vital in the retraction of soft tissues during the exposure and protecting vital structures. The PA was also vital and obtaining tendon reduction and assisting with hardware placement. She also played a vital role in closure and sling application with my direct supervision. Postoperative plan: Plan for same-day discharge today. Multimodal pain management with Tylenol, ibuprofen and oxycodone. Aspirin 81 mg twice daily for DVT prophylaxis as well as early ambulation. Follow-up in 2 weeks for suture removal. Delayed motion protocol pendulums only for 6 weeks with formal physical therapy to start at 6 weeks due to massive rotator cuff tear Surgical Findings: Massive rotator cuff tear. Good mobilization and tissue quality. Chronic long head biceps tendon rupture. Complications Complications: No Admit VTE Documentation VTE Present on Admission: No VTE Mechan Device Prophylaxis: SCD's VTE Pharm Prophylaxis ordered?: Yes
--- NOTE | 2025-04-10 13:38 | PCM.POST.ANE ---
Anesthesia: Postop Eval I Current Vital Signs Temperature: 97 F Pulse Rate: 84 Blood Pressure: 132/58 Respiratory Rate: 16 Pulse Ox: 92 Assessment Airway patent: Yes Spontaneous unlabored respirations: Yes nausea: No Vomiting: No Anesthesia Complication: No Fluid Hydration Crystalloid volume administer (ml): 1,200 Total IV fluid infused: 1,200 Progress Note Anesthesia document: Postop Eval 1 completed: Yes
--- NOTE | 2025-04-10 14:12 | POSTOPAN2_ITS ---
Anesthesia Postop Eval I Sum Postop Eval Completion status Anesthesia document: Postop Eval 1 completed: Yes Anesthesia Postop Eval I Summary Anesthesia Postop Eval I Summary: Anesthesia Postop Eval I: Assessment Summary Airway patent Yes 04/10/25 13:38 HYDROGEN [employer] [email or web address] Spontaneous unlabored Yes 04/10/25 13:38 HYDROGEN POWER [employer] [email or web address] respirations Mental status nausea No 04/10/25 13:38 HYDROGEN POWER [employer] [email or web address] Vomiting No 04/10/25 13:38 HYDROGEN POWER [email or web address] [email or web address] Anesthesia Postop Eval I: Fluid Summary Crystalloid volume administer 1,200 04/10/25 13:38 HYDROGEN POWER PL[employer] [email or web address] (ml) Colloids volume administered ( ml) Blood Product volume administered (ml) Total IV fluid infused 1,200 04/10/25 13:38 HYDROGEN POWER PLANT [email or web address] Anesthesia Postop Eval I: Summary Notes Anesthesia Complication No 04/10/25 13:38 HYDROGEN POWER [employer] [email or web address] Anesthesia Complication Comment: Post-operative progress note Anesthesia: Postop Eval II Evaluation Mental status: Awake and Calm Pain Level: 1 nausea: No Vomiting: No Complications Anesthesia Complication: No
--- NOTE | 2025-04-10 14:12 | PCM.POSTANE2 ---
Anesthesia Postop Eval I Sum Postop Eval Completion status Anesthesia document: Postop Eval 1 completed: Yes Anesthesia Postop Eval I Summary Anesthesia Postop Eval I Summary: Anesthesia Postop Eval I: Assessment Summary Airway patent Yes 04/10/25 13:[email or web address] Spontaneous unlabored Yes 04/10/25 13:[email or web address] respirations Mental status nausea No 04/10/25 13:[email or web address] Vomiting No 04/10/25 13:[email or web address] Anesthesia Postop Eval I: Fluid Summary Crystalloid volume administer 1,200 04/10/25 13:[email or web address] (ml) Colloids volume administered ( ml) Blood Product volume administered (ml) Total IV fluid infused 1,200 04/10/25 13:[email or web address] Anesthesia Postop Eval I: Summary Notes Anesthesia Complication No 04/10/25 13:[email or web address] Anesthesia Complication Comment: Post-operative progress note Anesthesia: Postop Eval II Evaluation Mental status: Awake and Calm Pain Level: 1 nausea: No Vomiting: No Complications Anesthesia Complication: No
== END 2025-04-10 15:55 | disposition home or self-care (01) ==
LOC: SDC 09:43 → AC 09:43
PROVIDERS: PCP Family Medicine; Referring Provider Student in an Organized Health Care Education/Training Program; Visit Provider Student in an Organized Health Care Education/Training Program
PROC: (CPT 29827; principal; 2025-04-10 13:25)
DX: M75.101 Unspecified rotator cuff tear or rupture of right shoulder, not specified as traumatic (principal); Z68.41 Body mass index [BMI] 40.0-44.9, adult; I10 Essential (primary) hypertension; J45.909 Unspecified asthma, uncomplicated; E07.9 Disorder of thyroid, unspecified; K21.9 Gastro-esophageal reflux disease without esophagitis; E78.5 Hyperlipidemia, unspecified; E66.9 Obesity, unspecified; Z86.718 Personal history of other venous thrombosis and embolism; Z79.899 Other long term (current) drug therapy; Z79.51 Long term (current) use of inhaled steroids
CPT/HCPCS: 29827; 64450; 01630; 36415; 80048; 85025; 93005; C1713